=== PATIENT | male | born 1980 | race Caucasian/White ===

== ENCOUNTER 2020-11-14 10:34 | Emergency (ER) | payer BC, SELFPAY ==
--- NOTE | ~2020-11-14 | CT_ITS ---
EXAMINATION: CT abdomen pelvis wo con DATE: 11/14/2020 11:37 INDICATION: Right flank pain TECHNIQUE: Computed tomography (CT) of the abdomen and pelvis was performed without intravenous contr ast. The dose-length product was 415.90 mGy-cm. Automated exposure control and iterative reconstructi on technique were employed. COMPARISON: None. FINDINGS: Lung bases are unremarkable. Heart size normal. No significant pleural or pericardial effus ion. There is a 3 mm distal right ureteral stone just proximal to the UVJ with mild hydronephrosis. Fatty infiltration of the liver. Status post cholecystectomy. The spleen, pancreas, adrenal glands an d left kidney are unremarkable. Nonobstructive bowel gas pattern. Bladder is decompressed. No signifi cant vascular abnormality. No lymphadenopathy. No free air or free fluid. No acute osseous abnormalit y. IMPRESSION: 1. Distal right ureteral stone measuring 3 mm with mild hydronephrosis. Reviewed, dictated and finalized at location A.
[2020-11-14 10:36] VITALS: BP 141/72; PULSE 70; RESP 20; TEMP 36.6; O2SAT 100
[2020-11-14 10:54] LABS: Basophils Percent Auto 0.4 % (0.2-1.2); Eosinophils Absolute Auto 0.2 K/mm3 (0-0.3); Eosinophils Percent Auto 2.8 % (0-4.4); Hematocrit 46.8 % (42.0-52.0); Hemoglobin 15.8 g/dL (14.0-18.0); Immature Granulocyte Absolute 0.02 K/mm3 (0.00-0.031); Immature Granulocyte Percent A 0.2 % (0-0.5); Lymphocytes Absolute Auto 3.21 K/mm3 (0.9-3.2); Lymphocytes Percent Auto 37.7 % (18.3-44.2); Mean Corpuscular HGB Conc 33.8 g/dl (32-36); Mean Corpuscular Hemoglobin 29.8 pg (26-34); Mean Corpuscular Volume 88.1 fl (80-100); Mean Platelet Volume 9.3 fl (7.4-10.4); Monocytes Absolute Auto 0.9 K/mm3 (0.1-0.6); Monocytes Percent Auto 10.6 % (2.6-8.5); Neutrophils Absolute Auto 4.1 K/mm3 (1.3-6.7); Neutrophils Percent Auto 48.3 % (45.5-73.1); Platelet Count Result 251 k/mm3 (150-375); Red Blood Count 5.31 M/mm3 (4.6-6.20); Red Cell Distribution Width 12.4 % (11.5-14.5); White Blood Count 8.5 K/mm3 (4.5-10.0)
[2020-11-14 11:03] LABS: Anion Gap 11 mmol/L (8-16); Blood Urea Nitrogen 13 mg/dL (9-20); Calcium 9.6 mg/dL (8.4-10.2); Carbon Dioxide 24 mmol/L (22-30); Chloride 102 mmol/L (98-107); Estimated CRCL calculation 118 ml/min; Estimated Glomerular Filt Rate > 60; Glucose 120 mg/dL (65-110); Potassium 3.8 mmol/L (3.4-5.0); Sodium 137 mmol/L (137-145)
[2020-11-14 11:15] LABS: Add Urine Microscopic? YES; Appearance Urine Clear (Clear); Bilirubin Urine Negative (Negative); Blood Urine 2+ (Negative); Calcium Oxalate Crystals Urine Present /hpf; Color Urine Yellow (Yellow); Glucose Urine UA Negative (Negative); Ketones Urine Negative (Negative); Leukocyte Esterase Ur Negative LEU/UL (Negative); Mucus Urine Rare /lpf; Nitrate Urine Negative (Negative); Protein Urine 1+ mg/dL (Negative); RBC Urine 51-75 /hpf (0-2); Specific Grav Ur 1.024 (1.001-1.035); Squamous Epithelial Cell Urine Rare /hpf (Few); Urobilinogen Urine Negative mg/dL (<2.0); WBC Urine 0-3 /hpf
[2020-11-14] MEDS: KETOROLAC 30 MG/ML VIAL (*BKC) IV PUSH (11:34)
[2020-11-14] MEDS: ONDANSETRON INJ 4 MG/2 ML VIAL IV PUSH (11:34)
[2020-11-14] MEDS: SODIUM CHLORIDE 0.9% IV 1,000 ML 999 ML IV CONT (11:35)
--- NOTE | 2020-11-14 12:32 | ED.ABDPAIN ---
HPI - Abdominal Pain General Chief Complaint: Abdominal Pain Stated Complaint: R FLANK PAIN Time Seen by Provider: 11/14/20 11:11 History of Present Illness HPI narrative: Patient is a 40-year-old male who presents ER with right-sided flank pain. Began 1 hour prior to arrival. Now having discomfort in the right lower quadrant. Had some nausea. No fevers or chills or sweats. No chest pain or chest pressure. Has not had similar symptoms. No urinary frequency urgency or dysuria. Related Data Allergies Allergy/AdvReac Type Severity Reaction Status Date / Time No Known Allergies Allergy Unverified 05/30/13 10:44 Review of Systems Review of Systems: All systems reviewed & are unremarkable except as noted in HPI and below Constitutional: Constitutional: Denies chills, Denies fever(s) and Denies weakness ENT: Denies nasal congestion and Denies sore throat Gastrointestinal: Gastrointestinal: Reports abdominal pain, Reports nausea and Denies vomiting Genitourinary: Genitourinary: Denies hematuria, Denies dysuria and Denies urinary frequency PMFSH Past Medical History Medical History (Updated 11/14/20 @ 12:38 by Jas Ulloa MD) Healthy male adult Surgical History Surgical History (Updated 11/14/20 @ 12:35 by Jas Ulloa MD) History of cholecystectomy Family History Family History (Updated 12/14/18 @ 10:10 by DOCTOR UNKNOWN) Other Family history of atrial fibrillation Social History Social History Smoking status: Never smoker Alcohol intake: current Gender identity (if verbalized by the patient): Male Exam Narrative: GENERAL: Well-appearing, well-nourished, and in no acute distress. HEAD: Normocephalic, atraumatic. EYES: PERRL and EOMI. ENT: Mucous membranes moist. CHEST: Clear to auscultation. No respiratory distress. HEART: Regular rate and rhythm. Normal peripheral pulses. ABDOMEN: Soft, nontender, nondistended. EXTREMITIES: Normal range of motion. No edema. SKIN: Warm, dry, no rash. NEURO: Alert and oriented x3. Course Course Emergency Course: Patient resting comfortably. Informed results. Discharge home. Vital Signs Vital signs: Vital Signs Temperature 97.8 F 11/14/20 10:36 Pulse Rate 70 11/14/20 10:36 Respiratory Rate 20 11/14/20 10:36 Blood Pressure 141/72 H 11/14/20 10:36 Pulse Oximetry 100 11/14/20 10:36 Temperature 97.8 F 11/14/20 10:36 Pulse Rate 70 11/14/20 10:36 Respiratory Rate 20 11/14/20 10:36 Blood Pressure 141/72 H 11/14/20 10:36 Pulse Oximetry 100 11/14/20 10:36 MDM - Abdominal Pain Lab Data Result diagrams: 11/14/20 10:45 11/14/20 10:45 Labs: Lab Results 11/14/20 11/14/20 11/14/20 Range/Units 10:45 10:45 10:54 WBC 8.5 (4.5-10.0) K/mm3 RBC 5.31 (4.6-6.20) M/mm3 Hgb 15.8 (14.0-18.0) g/dL Hct 46.8 (42.0-52.0) % MCV 88.1 (80-100) fl MCH 29.8 (26-34) pg MCHC 33.8 (32-36) g/dl RDW 12.4 (11.5-14.5) % Plt Count 251 (150-375) k/mm3 MPV 9.3 (7.4-10.4) fl Immature Gran % (Auto) 0.2 (0-0.5) % Neut % (Auto) 48.3 (45.5-73.1) % Lymph % (Auto) 37.7 (18.3-44.2) % [place] % (Auto) 10.6 H (2.6-8.5) % Eos % (Auto) 2.8 (0-4.4) % Baso % (Auto) 0.4 (0.2-1.2) % Lymph # (Auto) 3.21 H (0.9-3.2) K/mm3 [place] # (Auto) 0.9 H (0.1-0.6) K/mm3 Eos # (Auto) 0.2 (0-0.3) K/mm3 Baso # (Auto) 0.0 (0.0-0.1) K/mm3 Abs Immat Gran (auto) 0.02 (0.00-0.031) K/mm3 Absolute Neuts (auto) 4.1 (1.3-6.7) K/mm3 Absolute Nucleated RBC 0.0 (0.0-0.012) K/mm3 Nucleated RBC % 0.0 (0.0-0.2) % Sodium 137 (137-145) mmol/L Potassium 3.8 (3.4-5.0) mmol/L Chloride 102 (98-107) mmol/L Carbon Dioxide 24 (22-30) mmol/L Anion Gap 11 (8-16) mmol/L BUN 13 (9-20) mg/dL Creatinine 0.90 (0.7-1.3) mg/dL Estim Creat Clear Calc 118 ml/min Estimated GFR > 60 (59 - ) Glucose
[2020-11-14 12:51] VITALS: BP 132/78; PULSE 78; RESP 18; O2SAT 99
== END 2020-11-14 12:54 | disposition home or self-care (01) ==
PROVIDERS: Emergency Provider Emergency Medicine; PCP Family Medicine
DX: N13.2 Hydronephrosis with renal and ureteral calculous obstruction (principal)
CPT/HCPCS: 36415; 74176; 80048; 81001; 85025; 96361; 96374; 96375; 99284; J1885; J2405; J7030

== ENCOUNTER 2021-12-13 06:31 | Emergency (ER) | payer BC, OTHER, SELFPAY ==
--- NOTE | ~2021-12-13 | XR_ITS ---
EXAMINATION: XR abdomen/kub 1V DATE: 12/13/2021 07:41 INDICATION: Kidney stone. Left-sided back pain. TECHNIQUE: A supine view of the abdomen on 2 radiographs was obtained. COMPARISON: CT abdomen and pelvis 12/13/2021 FINDINGS: There are no dilated loops of bowel. Surgical clips in the right upper quadrant are likely from cholecystectomy. There is no visible urolithiasis. IMPRESSION: 1. No visible urolithiasis. Reviewed, dictated and finalized at location A. IMPRESSION: 1. No visible urolithiasis.
--- NOTE | ~2021-12-13 | CT_ITS ---
EXAMINATION: CT abdomen pelvis wo con DATE: 12/13/2021 07:35 INDICATION: Left flank pain. Nausea. TECHNIQUE: Computed tomography (CT) of the abdomen and pelvis was performed without intravenous contr ast. Automated exposure control and iterative reconstruction technique were employed. The dose-length product was 553.04 mGy-cm. COMPARISON: CT abdomen and pelvis 11/14/2020 FINDINGS: The visualized portions of the lung bases demonstrate mild atelectasis. No pleural effusion . The heart size is normal. No pericardial effusion. There is diffuse hepatic steatosis. There are ch anges of cholecystectomy. The spleen, pancreas, adrenal glands, and right kidney are normal. There is mild left hydronephrosis. There is a 3 mm stone in proximal left ureter. There are bilateral inguina l hernias containing fat. There is a supraumbilical ventral hernia containing fat. There are no dilat ed loops of bowel. The appendix is normal. There are no pathologically enlarged lymph nodes. There is no free intraperitoneal fluid. There is mild thoracolumbar spondylosis. IMPRESSION: 1. 3 mm stone in proximal left ureter with mild left hydronephrosis. 2. Bilateral inguinal hernias containing fat. 3. Supraumbilical ventral hernia containing fat. Reviewed, dictated and finalized at location A.
[2021-12-13 06:38] VITALS: PULSE 52; RESP 18; TEMP 36.4; O2SAT 100
[2021-12-13] MEDS: MORPHINE SULFATE (*CRX) 4 MG/ML INJ IV PUSH (06:50)
[2021-12-13 06:53] LABS: Basophils Percent Auto 0.3 % (0.2-1.2); Eosinophils Absolute Auto 0.5 K/mm3 (0-0.3); Eosinophils Percent Auto 4.1 % (0-4.4); Hematocrit 45.4 % (42.0-52.0); Hemoglobin 15.6 g/dL (14.0-18.0); Immature Granulocyte Absolute 0.03 K/mm3 (0.00-0.031); Immature Granulocyte Percent A 0.3 % (0-0.5); Lymphocytes Absolute Auto 5.36 K/mm3 (0.9-3.2); Lymphocytes Percent Auto 45.7 % (18.3-44.2); Mean Corpuscular HGB Conc 34.4 g/dl (32-36); Mean Corpuscular Hemoglobin 30.4 pg (26-34); Mean Corpuscular Volume 88.5 fl (80-100); Mean Platelet Volume 9.4 fl (7.4-10.4); Monocytes Absolute Auto 1.3 K/mm3 (0.1-0.6); Monocytes Percent Auto 10.7 % (2.6-8.5); Neutrophils Absolute Auto 4.6 K/mm3 (1.3-6.7); Neutrophils Percent Auto 38.9 % (45.5-73.1); Platelet Count Result 259 k/mm3 (150-375); Red Blood Count 5.13 M/mm3 (4.6-6.20); Red Cell Distribution Width 12.2 % (11.5-14.5); White Blood Count 11.7 K/mm3 (4.5-10.0)
[2021-12-13 07:03] LABS: Alanine Aminotransferase 76 U/L (6-50); Albumin Level 4.3 g/dL (3.5-5.1); Alkaline Phosphatase 71 U/L (38-126); Anion Gap 9 mmol/L (8-16); Aspartate Amino Transferase 47 U/L (17-59); Bilirubin,Total 0.8 mg/dL (0.2-1.3); Blood Urea Nitrogen 13 mg/dL (9-20); Calcium 9.3 mg/dL (8.4-10.2); Carbon Dioxide 25 mmol/L (22-30); Chloride 107 mmol/L (98-107); Estimated CRCL calculation 116 ml/min; Estimated Glomerular Filt Rate > 60; Glucose 114 mg/dL (65-110); Lipase 88 U/L (23-300); Potassium 3.7 mmol/L (3.4-5.0); Sodium 141 mmol/L (137-145)
--- NOTE | 2021-12-13 07:12 | ED.ABDPAIN ---
HPI - Abdominal Pain General Chief Complaint: Abdominal Pain Stated Complaint: left flank Time Seen by Provider: 12/13/21 06:40 Source: RN notes reviewed History of Present Illness HPI narrative: Patient presents emergency department from home for abdominal pain. Patient states symptoms began approximately 6 AM this morning. The pain is located in the left flank and radiates around the left side of the abdomen described as sharp and stabbing. Associated with nausea. Patient states he has a history of previous kidney stones and this feels similar to prior denies any fevers or chills chest pain shortness of breath vomiting diarrhea or any other symptoms patient states he not taking thing for pain at Related Data Allergies Allergy/AdvReac Type Severity Reaction Status Date / Time No Known Allergies Allergy Verified 12/13/21 06:44 Review of Systems Review of Systems: Gen.: Denies fevers or chills ENT: Denies congestion Respiratory: Denies shortness of breath or cough CV: Denies chest pain or palpitations GI: See HPI Musculoskeletal: Denies back pain or muscle pain Neuro: Denies numbness, tingling, weakness or focal weakness Skin: Denies rash Except as documented, all other systems reviewed and negative [facility] Past Medical History Medical History (Updated 12/13/21 @ 09:15 by Kevin Antoine DO) Healthy male adult Kidney stones Surgical History Surgical History (Updated 11/14/20 @ 12:35 by Jas Ulloa MD) History of cholecystectomy Family History Family History (Updated 12/14/18 @ 10:10 by DOCTOR UNKNOWN) Other Family history of atrial fibrillation Social History Social History Smoking status: Never smoker Alcohol intake: current Gender identity (if verbalized by the patient): Male Exam Narrative: APPEARANCE: No acute distress, nontoxic, resting in bed EYES: EOMI HEENT: Normocephalic, atraumatic, OMM RESPIRATORY: No respiratory distress Clear to auscultation bilaterally with no rhonchi wheezing or rales. CARDIOVASCULAR: Regular rate and rhythm without murmurs rubs or gallops. ABDOMINAL: Soft, nondistended mild tenderness left lower quadrant left upper quadrant no tenderness right upper quadrant right lower quadrant no rebound or guarding, mild left flank tenderness MUSCULOSKELETAl: Moves all extremities. No clubbing, cyanosis or edema. NEURO: Awake and alert. Following commands, speech normal, no focal deficits SKIN:: Warm, dry. No rashes lesions or abrasions PSYCHIATRIC: Normal affect/mood, Course Course Emergency Course: Patient states he is feeling much better at this time Discussed with patient results of workup and diagnosis. Discussed need for follow-up with primary care, proper use of medication, and reasons to return to the emergency department. Patient understands and agrees to current treatment plan Vital Signs Vital signs: Vital Signs Temperature 97.6 F 12/13/21 06:38 Pulse Rate 52 L 12/13/21 06:38 Respiratory Rate 18 12/13/21 06:38 Pulse Oximetry 100 12/13/21 06:38 Oxygen Delivery Room Air 12/13/21 06:38 Temperature 97.6 F 12/13/21 06:38 Pulse Rate 65 12/13/21 09:06 Respiratory Rate 18 12/13/21 09:06 Blood Pressure 147/99 H 12/13/21 09:06 Pulse Oximetry 97 12/13/21 09:06 Oxygen Delivery Room Air 12/13/21 06:38 MDM - Abdominal Pain Lab Data Result diagrams: 12/13/21 06:48 12/13/21 06:48 Labs: Lab Results 12/13/21 12/13/21 12/13/21 Range/Units 06:48 06:48 09:00 WBC 11.7 H (4.5-10.0) K/mm3 RBC 5.13 (4.6-6.20) M/mm3 Hgb 15.6 (14.0-18.0) g/dL Hct 45.4 (42.0-52.0) % MCV 88.5 (80-100) fl MCH 30.4 (26-34) pg MCHC 34.4 (32-36) g/dl RDW 12.2 (11.5-14.5) % Plt Count 259 (150-375) k/mm3 MPV 9.4 (7.4-10.4) fl Immature Gran % (Auto) 0.3 (0-0.5) % Neut % (Auto) 38.9 L (45.5-73.1)
--- NOTE | 2021-12-13 07:13 | PC.NURSE ---
Took report from the pipeline controller. Pt is resting, denies pain at this time, family at the bedside.
[2021-12-13] MEDS: KETOROLAC 30 MG/ML VIAL (*BKC) IV PUSH (07:43)
[2021-12-13] MEDS: SODIUM CHLORIDE 0.9% IV 1,000 ML 999 ML IV CONT (07:44)
[2021-12-13] MEDS: ONDANSETRON INJ 4 MG/2 ML VIAL IV PUSH (07:44)
[2021-12-13] MEDS: TAMSULOSIN HCL 0.4 MG CAPSULE PO (08:06)
[2021-12-13 09:06] VITALS: BP 147/99; PULSE 65; RESP 18; O2SAT 97
[2021-12-13 09:06] LABS: Appearance Urine Clear (Clear); Bilirubin Urine Negative (Negative); Blood Urine 3+ (Negative); Color Urine Yellow (Yellow); Glucose Urine UA Negative (Negative); Ketones Urine Negative (Negative); Leukocyte Esterase Ur Negative LEU/UL (Negative); Nitrate Urine Negative (Negative); Protein Urine Negative (Negative); Specific Grav Ur 1.015 (1.001-1.035); Urobilinogen Urine 0.2 mg/dL (<2.0); pH Urine 6.5 (5.0-9.0)
[2021-12-13 09:26] LABS: Add Urine Microscopic? YES
[2021-12-13 09:27] LABS: Calcium Oxalate Crystals Urine Present /hpf; RBC Urine 51-75 /hpf (0-2); Squamous Epithelial Cell Urine Few /hpf (Few); WBC Urine 0-3 /hpf (0-3)
[2021-12-13 09:28] LABS: Mucus Urine Few /lpf
[2021-12-13 09:38] VITALS: BP 163/71; PULSE 68; RESP 18; O2SAT 100
== END 2021-12-13 09:41 | disposition home or self-care (01) ==
PROVIDERS: Emergency Medicine; Emergency Provider Emergency Medicine; PCP Family Medicine
DX: N13.2 Hydronephrosis with renal and ureteral calculous obstruction (principal); Z87.442 Personal history of urinary calculi; K40.20 Bilateral inguinal hernia, without obstruction or gangrene, not specified as recurrent; K43.9 Ventral hernia without obstruction or gangrene
CPT/HCPCS: 36415; 74018; 74176; 80053; 81001; 83690; 85025; 96361; 96374; 96375; 99284; A9270; J1885; J2270; J2405; J7030

== ENCOUNTER 2021-12-13 20:12 | Emergency (ER) | payer BC, OTHER, SELFPAY ==
--- NOTE | ~2021-12-13 | XR_ITS ---
EXAM: XR abdomen/kub 1V DATE: 12/13/2021 21:04 HISTORY: checking position of L 3mmstone found this am,pain worsening . COMPARISON: 12/13/2021 at 7:[address] abdomen and pelvis 12/13/2021. FINDINGS: Clear lung bases. Cholecystectomy clips. Normal bowel gas pattern. No organomegaly. No abn ormal abdominal calcification. Regional bones and soft tissues normal for age. IMPRESSION: No visible urolithiasis. Reviewed, dictated and finalized at location K. IMPRESSION: No visible urolithiasis.
[2021-12-13 20:15] VITALS: BP 126/96; PULSE 59; RESP 20; TEMP 36.2; O2SAT 99
[2021-12-13] MEDS: KETOROLAC 30 MG/ML VIAL (*BKC) IV PUSH (21:10)
[2021-12-13] MEDS: SODIUM CHLORIDE 0.9% IV 1,000 ML 999 ML IV CONT (21:10)
--- NOTE | 2021-12-13 21:44 | ED.MALEGU ---
HPI - Male Genitourinary General Chief complaint: Urogenital-Male Stated complaint: left kidney stone seen this am for same Time Seen by Provider: 12/13/21 20:37 History of Present Illness HPI Narrative: Patient is a 41-year-old male who presents to the ER for left-sided flank pain. Radiating to left lower quadrant. Was seen earlier today and diagnosed with approximately kidney stone. He has had some sweats and nausea. Pain slightly improved with hydrocodone but is uncomfortable enough he felt he needed to come to the ER. He has been eating and drinking normally. He does report that he is increase his fluid intake in hopes of passing the stone. Related Data Allergies Allergy/AdvReac Type Severity Reaction Status Date / Time No Known Allergies Allergy Verified 12/13/21 20:15 Review of Systems Review of Systems: All systems reviewed & are unremarkable except as noted in HPI and below Constitutional: Constitutional: Reports chills, Denies fatigue and Denies fever(s) ENT: Denies nasal congestion and Denies sore throat Cardiovascular: Cardiovascular: Denies chest pain, Denies radiating jaw, neck or arm pain and Denies slow heart rate Respiratory: Respiratory: Denies cough and Denies dyspnea Gastrointestinal: Gastrointestinal: Reports abdominal pain, Reports nausea and Denies vomiting Genitourinary: Genitourinary: Denies hematuria, Reports oliguria, Denies dysuria and Reports urinary frequency PMFSH Past Medical History Medical History (Updated 12/13/21 @ 22:54 by Jas Ulloa MD) Healthy male adult Kidney stones Surgical History Surgical History (Updated 11/14/20 @ 12:35 by Jas Ulloa MD) History of cholecystectomy Family History Family History (Updated 12/14/18 @ 10:10 by DOCTOR UNKNOWN) Other Family history of atrial fibrillation Social History Social History Smoking status: Never smoker Alcohol intake: current Gender identity (if verbalized by the patient): Male Exam Narrative: GENERAL: Uncomfortable-appearing, well-nourished, and in no acute distress. HEAD: Normocephalic, atraumatic. ENT: Mucous membranes moist. CHEST: Clear to auscultation. No respiratory distress. HEART: Regular rate and rhythm. Normal peripheral pulses. ABDOMEN: Soft, nontender, nondistended. EXTREMITIES: Normal range of motion. No edema. SKIN: Warm, dry, no rash. NEURO: Alert and oriented x3. PSYCH: Normal mood and affect. Course Course Emergency Course: Patient resting comfortably. Improved pain with Toradol but would like an additional dose something before going home. Will oblige and give morphine. We will switch from hydrocodone to Percocet. Vital Signs Vital signs: Vital Signs Temperature 97.2 F L 12/13/21 20:15 Pulse Rate 59 L 12/13/21 20:15 Respiratory Rate 20 12/13/21 20:15 Blood Pressure 126/96 H 12/13/21 20:15 Pulse Oximetry 99 12/13/21 20:15 Oxygen Delivery Room Air 12/13/21 20:15 Temperature 97.2 F L 12/13/21 20:15 Pulse Rate 59 L 12/13/21 20:15 Respiratory Rate 12/13/21 20:15 Blood Pressure 126/96 H 12/13/21 20:15 Pulse Oximetry 99 12/13/21 20:15 Oxygen Delivery Room Air 12/13/21 20:15 MDM - Male Genitourinary Imaging Data Radiologist's impression: ITS Impressions Abdomen X-Ray 12/13/21 21:17 IMPRESSION: No visible urolithiasis. Discharge Plan Discharge Clinical Impression: Kidney stone on left side Patient Disposition: Home, Self-Care Condition: Stable Instructions: Kidney Stones (ED) Additional Instructions: Return the ER if you have fever over 100.4 ?F, you cannot keep down food/water/medication, you have additional concerns. Contact urologist office for further treatment evaluation Prescriptions: New oxycodone-acetaminophen [Percocet] 5-325 mg tablet 1 tablet PO Q6H PRN (Reason: pain) Qty: 12 0RF No Action hydroc
[2021-12-13] MEDS: MORPHINE SULFATE (*CRX) 4 MG/ML INJ IV PUSH (23:03)
[2021-12-13 23:17] VITALS: BP 130/88; PULSE 70; RESP 12; O2SAT 99
[2021-12-13 23:34] VITALS: BP 140/90; PULSE 78; RESP 16; TEMP 36.4; O2SAT 98
== END 2021-12-13 23:35 | disposition home or self-care (01) ==
PROVIDERS: Emergency Provider Emergency Medicine; PCP Family Medicine
DX: N20.0 Calculus of kidney (principal); Z87.442 Personal history of urinary calculi
CPT/HCPCS: 74018; 96361; 96374; 96375; 99284; J1885; J2270; J7030

== ENCOUNTER → 2023-02-17 13:58 | Outpatient (CLI) | payer BC, OTHER, SELFPAY ==
--- NOTE | ~2023-02-17 | XR_ITS ---
EXAMINATION: XR abdomen/kub 1V DATE: 02/17/2023 14:24 INDICATION: Right ureteral stone. TECHNIQUE: A supine view of the abdomen on 2 radiographs was obtained. COMPARISON: CT abdomen and pelvis 12/13/2021 FINDINGS: There are no dilated loops of bowel. Surgical clips in the right upper quadrant are likely from cholecystectomy. There is no visible urolithiasis. IMPRESSION: 1. No visible urolithiasis. Reviewed, dictated and finalized at location E. [employer] IMPRESSION: 1. No visible urolithiasis.
== END ==
PROVIDERS: PCP Urology; Visit Provider Urology
DX: N20.1 Calculus of ureter (principal)
CPT/HCPCS: 74018

== ENCOUNTER 2024-01-26 10:09 | Outpatient (CLI) | payer BC, OTHER, SELFPAY ==
--- NOTE | 2024-01-26 | EST_ITS ---
Patient Info Name: Vito Gastelum Age: 43 years : 1980 Gender: Male Ht: 70 in Wt: 275 lbs BSA: 2.54 m2 HR: 57 bpm BP: 117 / 81 mmHg Heart Rhythm: Sinus Rhythm Exam Date: 01/26/2024 11:25 AM Exam Location: Echo Lab Patient Status: Outpatient Admit Date: 01/26/2024 Staff Ordering Physician: Janny, Zora JAMES Attending Provider: Janny, Zora JAMES Exercise Technologist: Miladis Walls CT Exercise Physician: Quan Abrams DO Exam Type: CA stress test treadmill w NM Study Info Indications R07.9 - Chest pain, unspecified A nuclear stress test was performed. Summary 1. 1. Negative Rell exercise stress test for ischemic ST changes by ECG criteria. 2. 2. Reduced functional capacity, achieving 10 METs of workload. 3. 3. Appropriate HR response to exercise. 4. 4. Appropriate HR recovery at 1 minute post exercise. 5. 5. Nuclear scan to follow and will be reported separately. Please correlate with it. 6. 6. Patient informed of the above results. Protocol: Rell Stress ECG Details Stage: REST Duration (min): 1 min : 31 sec Speed (mph): 0.0 Grade (%): 0 HR (bpm): 60 SBP (mmHg): 117 DBP (mmHg): 81 METS: --- Stage: REST Duration (min): 22 min : 53 sec Speed (mph): 0.0 Grade (%): 0 HR (bpm): 90 SBP (mmHg): 117 DBP (mmHg): 81 METS: --- Stage: STAGE 1 Duration (min): 1 min : 0 sec Speed (mph): 1.7 Grade (%): 10 HR (bpm): 104 SBP (mmHg): 117 DBP (mmHg): 81 METS: --- Stage: STAGE 1 Duration (min): 2 min : 0 sec Speed (mph): 1.7 Grade (%): 10 HR (bpm): 110 SBP (mmHg): 117 DBP (mmHg): 81 METS: --- Stage: STAGE 1 Duration (min): 3 min : 0 sec Speed (mph): 1.7 Grade (%): 10 HR (bpm): 113 SBP (mmHg): 151 DBP (mmHg): 104 METS: --- Stage: STAGE 2 Duration (min): 1 min : 0 sec Speed (mph): 2.5 Grade (%): 12 HR (bpm): 129 SBP (mmHg): 151 DBP (mmHg): 104 METS: --- Stage: STAGE 2 Duration (min): 2 min : 0 sec Speed (mph): 2.5 Grade (%): 12 HR (bpm): 133 SBP (mmHg): 172 DBP (mmHg): 104 METS: --- Stage: STAGE 2 Duration (min): 3 min : 0 sec Speed (mph): 2.5 Grade (%): 12 HR (bpm): 138 SBP (mmHg): 172 DBP (mmHg): 104 METS: --- Stage: STAGE 3 Duration (min): 1 min : 0 sec Speed (mph): 3.4 Grade (%): 14 HR (bpm): 150 SBP (mmHg): 172 DBP (mmHg): 107 METS: --- Stage: STAGE 3 Duration (min): 2 min : 0 sec Speed (mph): 3.4 Grade (%): 14 HR (bpm): 154 SBP (mmHg): 172 DBP (mmHg): 107 METS: --- Stage: STAGE 3 Duration (min): 2 min : 8 sec Speed (mph): 3.4 Grade (%): 14 HR (bpm): 154 SBP (mmHg): 172 DBP (mmHg): 107 METS: --- Stage: RECOVERY Duration (min): 0 min : 51 sec Speed (mph): 0.0 Grade (%): 0 HR (bpm): 133 SBP (mmHg): 146 DBP (mmHg): 96 METS: --- Stage: RECOVERY Duration (min): 1 min : 11 sec Speed (mph): 0.0 Grade (
--- NOTE | ~2024-01-26 | NM_ITS ---
NM stress w perf spect multi Procedure: The patient was stressed using Modified Rell protocol. Prior to the end of exercise 28.6 mCi Tc 99m IV administered. Rest imaging performed following administration of 9.3 mCi Tc 99m IV. Images were reformatted into short axis, horizontal and vertical long axis sections for visual and qu antitative analysis. Indication: Chest pain Comparison: None Findings: Computer assisted qualitative and quantitative analysis of the immediate and delayed images revealed normal left ventricular perfusion without evidence of fixed or reversible perfusion abnorma lity to suggest ischemia or infarction. Normal left ventricular cavity size, wall motion and ejectio n fraction. Left ventricular ejection fraction measures 57%. Impression: 1: No scintigraphic evidence of resting or stress induced perfusion abnormality. 2: Decreased left ventricle ejection fraction measuring 57%. Reviewed, dictated and finalized at location B. Impression: 1: No scintigraphic evidence of resting or stress induced perfusion abnormality . 2: Decreased left ventricle ejection fraction measuring 57%.
== END 2024-01-26 10:10 | disposition home or self-care (01) ==
PROVIDERS: PCP Physician Assistant; Visit Provider Physician Assistant
DX: R07.9 Chest pain, unspecified (principal)
CPT/HCPCS: 78452; 93017; A9502

== ENCOUNTER 2024-02-21 13:20 | Outpatient (CLI) | payer BC, OTHER, SELFPAY ==
--- NOTE | 2024-02-21 | ECHO_ITS ---
Patient Info Name: Vito Gastelum Age: 43 years : 1980 Gender: Male Ht: 70 in Wt: 270 lbs BSA: 2.51 m2 HR: 74 bpm BP: 152 / 101 mmHg Heart Rhythm: Sinus Rhythm Technical Quality: Fair Exam Date: 02/21/2024 2:11 PM Exam Location: Echo Lab Patient Status: Outpatient Admit Date: 02/21/2024 Staff Ordering Physician: JannyZora PA-C Sheriff Officer: Fransisca Claros RDCS Attending Provider: MelissaZora PA-C Exam Type: CA echo doppler color flow Study Info Indications - abn findings on diagnostic imaging of the heart and coronary circulation Complete two-dimensional, color flow and Doppler transthoracic echocardiogram is performed. Summary 1. Complete two-dimensional, color flow and Doppler transthoracic echocardiogram is performed. 2. Left ventricular chamber dimension is normal. 3. Left ventricular systolic function is normal, estimated at 60-65%. 4. The left ventricular diastolic function is grade I diastolic dysfunction. 5. E/e' 8 is minimally elevated. 6. Left atrial chamber dimension is mildly enlarged. 7. There is trace mitral valve regurgitation. 8. There is trace tricuspid valve regurgitation. 9. No pulmonary hypertension, estimated pulmonary arterial systolic pressure is 28 mmHg. Left Ventricle E/e' 8 is minimally elevated. Left ventricular chamber dimension is normal. Left ventricular systolic function is normal, estimated at 60-65%. The left ventricular diastolic function is grade I diastolic dysfunction. Right Ventricle Right ventricular systolic function is normal and with normal TAPSE 2.2 cm. Right ventricular chamber dimension is normal. Left Atria Left atrial chamber dimension is mildly enlarged. Right Atria Right atrial chamber dimension is normal. Aortic Valve The aortic valve is trileaflet. There is no aortic valve stenosis. There is no aortic valve regurgitation. Pulmonic Valve There is no pulmonic regurgitation. Mitral Valve There is no mitral valve stenosis. There is trace mitral valve regurgitation. Tricuspid Valve There is trace tricuspid valve regurgitation. No pulmonary hypertension, estimated pulmonary arterial systolic pressure is 28 mmHg. Pericardium/Pleural There is no pericardial effusion. Inferior Vena Cava Normal inferior vena cava with >50% collapse upon inspiration consistent with normal right atrial pressure, 5 mmHg. Aorta The aortic root size at the sinus of Valsalva is normal. Left Ventricular Outflow Tract Name Value Normal LVOT 2D LVOT Diameter 2.2 cm LVOT Doppler LVOT Peak Gradient 3 mmHg LVOT Mean Gradient 1 mmHg LVOT VTI 17 cm LVOT VTI/AV VTI Ratio 0.7 LVOT Stroke Volume 62 ml LVOT CO 4.3 l/min LVOT CI 1.7 l/min/m2 Pulmonic Valve Name Value Normal RVOT Doppler RVOT Peak Gradient 2 mmHg PV Doppler PV Peak Gradient 4 mmHg Mitral Valve Name Value Normal MV Doppler MV Decel [place] 334 cm/s2 MV PHT 61 ms MV Area (PHT) 3.6 cm2 4.0-5.0 MV Diastolic Function MV E Peak Velocity 71 cm/s MV A Peak Velocity 94 cm/s MV E/A 0.8 MV Decel Time 212 ms MV Annular TDI MV E/e' (Septal) 9.3 <=8.0 MV E/e' (Lateral) 7.7 <=8.0 MV E/e' (Average) 8.5 Tricuspid Valve Name Value Normal TV Regurgitation Doppler TR Peak Velocity 241 cm/s TR Peak Gradient 16 mmHg Estimated PAP/RSVP RA Pressure 5 mmHg <=5 PA Systolic Pressure 28 mmHg <36 RV Systolic Pressure 28 mmHg <36 Aortic Valve Name Value Normal AV Doppler AV Peak Velocity 135 cm/s AV Peak Gradient 7 mmHg AV Mean Gradient 4 mmHg AV VTI 25 cm AV Area (Cont Eq VTI) 2.5 cm2 >=3.0 AV Area (Cont Eq Kris) 2.4 cm2 AV Regurgitation 2D LVOT Area 3.7 cm2 Ventricles Name Value Normal LV Dimensions 2D/MM IVS Diastolic Thickness (2D) 1.0 cm 0.6-1.0 LVID Diastole (2D) 4.6 cm 4.2-5.8 LVIW Diastolic Thickness (2D) 1.0 cm 0.6-1.0 LVID Systole (2D) 3.0 cm 2.5-4.0 LVOT Diameter 2.2 cm LV Mass (2D Cubed) 159.15 g 88.00-224.00 LV Mass Index (2D Cubed) 63 g/m2 49-115 Relative Wall Thickness (2D) 0.42 LV Fractional Shortening/Ejection Fraction 2D/MM LV Fractional Shortening (2D) 35 % 25-43 LV EF (2D Teicholz) 64 % 52-72 LV Diastolic Volume (4C MOD) 117 ml LV EF (4C MOD) 70 % LV Diastolic Volume (2C MOD) 92 ml LV EF (2C MOD) 73 % LV Diastolic Volume (BP MOD) 104 ml 62-150 LV Diastolic Volume Index (BP MOD) 41 ml/m2 34-74 LV Systolic Volume (BP MOD) 31 ml 21-61 LV Systolic Volume Index (BP MOD) 12 ml/m2 11-31 LV EF (BP MOD) 70 % 52-72 LV Diastolic Length (4C) 9.4 cm LV Systolic Length (4C) 7.2 cm LV Stroke Volume (4C MOD) 82 ml Atria Name Value Normal LA Dimensions LA Volume (4C A-L) 61 ml LA Volume (BP A-L) 61 ml RA Dimensions RA Area (4C) 13.5 cm2 <=18.0 Report Signatures
== END 2024-02-21 13:21 | disposition home or self-care (01) ==
PROVIDERS: PCP Physician Assistant; Visit Provider Physician Assistant
DX: R93.1 Abnormal findings on diagnostic imaging of heart and coronary circulation (principal)
CPT/HCPCS: 93306

== ENCOUNTER 2024-03-03 12:54 | Emergency (ER) | payer BC, OTHER, SELFPAY ==
--- NOTE | ~2024-03-03 | XR_ITS ---
EXAMINATION: XR chest 2V DATE: 03/03/2024 13:49 INDICATION: Cough and fever TECHNIQUE: frontal and lateral views of the chest were obtained. COMPARISON: Chest radiograph dated 12/14/2018 FINDINGS: Focal airspace opacities in the infrahilar left lower lung zone. No pulmonary edema, pleural effusion or pneumothorax. The cardiomediastinal silhouette is normal. IMPRESSION: 1. Focal airspace opacity in the infrahilar left lower lung which could represent atelectasis or pneu monia. Reviewed, dictated and finalized at location A. CONDU[employer] MARKER IMPRESSION: 1. Focal airspace opacity in the infrahilar left lower lung which could represe nt atelectasis or pneumonia.
[2024-03-03 13:06] VITALS: BP 142/85; PULSE 77; RESP 16; TEMP 37.1; O2SAT 100
--- NOTE | 2024-03-03 13:35 | ED_ITS ---
HPI - URI/Sore Throat General Chief Complaint: Upper Respiratory Infection Stated Complaint: Cough/Fever/Ear Pain Time Seen by Provider: 03/03/24 13:36 Source: patient Mode of arrival: ambulatory Limitations: no limitations History of Present Illness HPI Narrative: 43 y/o male presented for c/o cough for over one week and started with left ear pain last night. Also reports fever up to 102 last night and endorses wheezing. Pt was seen at the onset of symptoms at an outside UC, given benzonatate, tested negative for covid, flu and strep and had negative cxr at that time. Denies sob, n/v/d. Related Data Home Medications Medication Instructions Recorded Confirmed dextroamphetamine-amphetamine 20 20 mg PO QPM 12/26/22 03/03/24 mg tablet (Adderall) dextroamphetamine-amphetamine ER 10 mg PO DAILY 12/26/22 03/03/24 10 mg 24hr capsule,extend release (Adderall XR) atomoxetine 40 mg capsule 40 mg PO DAILY 03/03/24 03/03/24 benzonatate 100 mg capsule 100 mg PO DIRECTED 03/03/24 03/03/24 ondansetron 4 mg disintegrating 4 mg PO DIRECTED 03/03/24 03/03/24 tablet Allergies Allergy/AdvReac Type Severity Reaction Status Date / Time No Known Allergies Allergy Verified 03/03/24 13:25 Review of Systems Review of Systems: ROS per HPI All systems reviewed & are unremarkable except as noted in HPI and below PMFSH Past Medical History Medical History BMI 39.0-39.9,adult Healthy male adult Kidney stones Obstructive sleep apnea Surgical History Surgical History History of cholecystectomy Family History Family History Father Heart disease CHF (congestive heart failure) Acute myocardial infarction Large fiber neuropathy A-fib Mother Hypertension Sibling No problems noted. 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 Please see nursing chart for further information. There is no relevant family history pertinent to the presenting complaint Exam Narrative: GENERAL: Well-appearing, in no acute distress. EYES: EOMI. No redness or drainage. Conjunctivae normal. ENT: Mucous membranes pink and moist. Right TM normal; left normal ear. Throat normal. Uvula midline. CHEST: No respiratory distress. Wheezing to left lung astorga. Frequent nonproductive cough. HEART: Regular rate and rhythm. No murmur appreciated. ABDOMEN: Soft, nontender, nondistended, normal active bowel sounds. EXTREMITIES: Normal range of motion. No edema. SKIN: Warm, dry, no rash. Capillary refill normal. Normal skin turgor. NEURO: Alert and oriented x3. Gait steady. PSYCH: Normal affect. Course Course Emergency Course: Patient is aware of diagnosis, understands and agrees to treatment plan. Anticipatory guidance given. Patient agrees to follow-up as directed and is aware of reasons to seek care at the emergency department. Portions of this record may have been created with voice recognition software Level of Care: Express Care Visit Vital Signs Vital signs: Vital Signs Temperature 98.8 F 03/03/24 13:06 Pulse Rate 77 03/03/24 13:06 Respiratory Rate 16 03/03/24 13:06 Blood Pressure 142/85 H 03/03/24 13:06 Pulse Oximetry 100 03/03/24 13:06 Temperature 98.8 F 03/03/24 13:06 Pulse Rate 77 03/03/24 13:06 Respiratory Rate 16 03/03/24 13:06 Blood Pressure 142/85 H 03/03/24 13:06 Pulse Oximetry 100 03/03/24 13:06 MDM - URI/Sore Throat MDM Narrative Medical decision making narrative: Discussed physical exam findings and CXR. Advised supportive measures and signs/symptoms to go to the ER. Pt is appropriate for outpt treatment and f/u. Differential Diagnosis Differential diagnosis: Likely upper respiratory infection, sinusitis, viral infection, bronchitis, influenza and pharyngitis Imaging Data Radiologist's impression: Patient: Vito Gastelum : 1980 MR#: [id number] Age: 43 Acct:[id number] Loc: [id number] ADM Date: 03/03/24Attending Dr: Ordering Physician: Kristin Morel APRN Date of Service: 03/03/24 Procedure(s): XR chest 2V Accession Number(s): [id number] cc: Kristin Morel APRN; Janny, Zora JAMES~ EXAMINATION: XR chest 2V DATE: 03/03/2024 13:49 INDICATION: Cough and fever TECHNIQUE: frontal and lateral views of the chest were obtained. COMPARISON: Chest radiograph dated 12/14/2018 FINDINGS: Focal airspace opacities in the infrahilar left lower lung zone. No pulmonary edema, pleural effusion or pneumothorax. The cardiomediastinal silhouette is normal. IMPRESSION: 1. Focal airspace opacity in the infrahilar left lower lung which could represent atelectasis or pneumonia Discharge Plan Discharge Clinical Impression: Pneumonia Patient Disposition: Home, Self-Care Condition: Stable Instructions: Antibiotic Form, Pneumonia (ED) Additional Instructions: Pneumonia is a lung infection that can cause a fever, cough, and trouble breathing. How it spreads: When someone with bacterial pneumonia coughs, sneezes, or talks, they release respiratory droplets into the air that can be inhaled by others.?You can also get pneumonia by touching a contaminated surface or object and then touching your mouth or nose. You're generally contagious for around 48 hours after starting antibiotics and your fever goes away.? To prevent the spread of pneumonia, you can:? ? Get vaccinated? ? Wash your hands often with soap and water for 20 seconds? ? Cover your mouth with a tissue when you cough or sneeze? ? Avoid people who are already sick with pneumonia? ? Stay home when you have pneumonia Take antibiotics as directed until complete. eat small frequent meals. Get lots of rest and drink fluids. Alternate Tylenol and ibuprofen for pain/fever Sxhj-deq-zoujpyi cough medication can cause drowsiness, take according to yumiko austin directions If you have nasal congestion, you can take Zyrtec, Claritin along with Flonase spray Call your Primary Care Doctor and make a follow-up appointment in 3 days. Go to the ER for worsening symptoms or concerns Prescriptions: New methylprednisolone [Medrol (Josiah)] 4 mg tablets,dose pack See Rx Instructions .ROUTE .COMPLEX Qty: 21 0RF Rx Instructions: orally per package directions albuterol sulfate 90 mcg/actuation HFA aerosol inhaler 2 inh inhalation QID PRN (Reason: shortness of breath or wheezing) Qty: 8.5 0RF amoxicillin-pot clavulanate 875-125 mg tablet 1 tablet PO Q12H 7 Days Qty: 14 0RF No Action benzonatate 100 mg capsule 100 mg PO DIRECTED ondansetron 4 mg tablet,disintegrating 4 mg PO DIRECTED atomoxetine 40 mg capsule 40 mg PO DAILY dextroamphetamine-amphetamine [Adderall XR] 10 mg capsule,extended release 24hr 10 mg PO DAILY dextroamphetamine-amphetamine [Adderall] 20 mg tablet 20 mg PO QPM Follow-up/Referrals: Janny,ERIKA Blakely [Primary Care Provider] - Stand Alone Forms: Work/School Release IP
== END 2024-03-03 14:24 | disposition home or self-care (01) ==
PROVIDERS: Emergency Provider Nurse Practitioner Family; PCP Physician Assistant
DX: J18.9 Pneumonia, unspecified organism (principal)
CPT/HCPCS: 71046; 99213; G0463

== ENCOUNTER 2024-07-05 00:53 | Day surgery (SDC) | payer BC, OTHER, SELFPAY ==
[2024-06-25 10:23] VITALS: BMI 38.8
--- OUTSIDE RECORDS SUMMARY | 2024-07-05 00:56 | XMS_ITS | Clinical Summary ---
Author Organization [facility] Address [address] [place] [address] Care Team Providers Care Esthetician And Manager Medical Spa Name Role Phone Johnathan Ford MD Unavailable [phone] Zora Soliman Primary Care Pr ovider Bennie Sofia NP Unavailable [phone] Allergies No known active allergies Medications dextroamphetami ne-amphetamine (ADDERALL) 20 mg tablet 1 tablet (20 mg total) Patient takes 40mg in the am and 20mg in the afternoon Active ascorbic acid (VITAMIN C) 500 mg tablet,chewable Take 1 tablet/chew tab (500 mg total) by mouth 2 (two) times a day 60 tablet/chew tab 4 Active aspirin 81 mg enteric coated tabletIndicatio ns:prevention of thrombosis Take 1 tablet (81 mg total) by mouth 2 (two) times a day for 14 days 28 tablet 4 Active cholecalciferol (VITAMIN D-3) 2000 unit capsule Take 1 capsule (2,000 Units total) by mouth daily 30 capsule 4 Active HYDROcodone-claudia taminophen (NORCO) 5-325 mg per tabletIndicatio ns:Pain Take 1 tablet by mouth every 6 (six) hours as needed for pain 15 tablet 4 Active ondansetron (ZOFRAN) 4 mg tabletIndicatio ns:Prevention of Post-Operative Nausea and Vomiting Take 1 tablet (4 mg total) by mouth every 6 (six) hours as needed for nausea or vomiting 20 tablet 1 4 Active senna-docusate (PERICOLACE) 8.6-50 mg Take 1 tablet by mouth 2 (two) times a day as needed for constipation 20 tablet 1 4 Active benzonatate (TESSALON) 100 mg capsuleIndicati ons:Cough Take 1 capsule (100 mg total) by mouth 3 (three) times a day as needed for cough 42 capsule 4 Active Active Problems Problem Noted Date Diagnosed Date Tear of medial meniscus of right knee 09/20/2023 Pain of upper abdomen 06/12/2023 Severe sepsis 12/16/2021 Ureteral stone with hydronephrosis 12/16/2021 Fatty liver 12/16/2021 Splenomegaly 12/16/2021 ADHD (attention deficit hype ractivity disorder), inattentive type 12/16/2021 COLTON (obstructive sleep apnea) 12/16/2021 Class 2 severe obesity due t o excess calories with serious comorbidity and body mass index (BMI) of 35.0 to 35.9 in adult 12/16/2021 Acute pyelonephritis 12/16/2021 Kidney donor 07/15/2020 History of cardiac radiofrequency ablation 01/08 Overview (12/16/2021): For SVT Assessment & Plan (01/08/2019 5:09 PM CDT): Frequent episodes lasting up to 10 minutes, usually converting with squatting. Resting bradycardia precludes beta-aide therapy. Will refer to EP for consideration of radiofrequency ablation. Will obtain echo Doppler. Will obtain actual strips from his Holter monitor done at [facility]. Chest pain 01/08/2019 Assessment & Plan (01/08/2019 5:10 PM CDT): Chest pain is not suggestive myocardial ischemia. Aside from possibly positive family history, he is not known to have risk factors for coronary artery disease. Resting EKG is normal. We considered obtaining a stress test, largely for his reassurance, but he is concerned that it may put him in to his tachycardia, so will hold off for now. Elevated liver enzymes 09/08/2009 Anxiety state 08/20/2009 Snoring 08/20/2009 Fever, unspecified Surgical History Surgery Date Site/Laterality Comments VASECTOMY CARDIAC ELECTROPHYSIOLOGY STUDY AND ABLATION 9 LAPAROSCOPIC CHOLECYSTECTOMY Medical History Medical History Date Comments Paroxysmal SVT (supraventricular tachycardia) Obstructive sleep apnea CPAP Fatty liver Kidney stones ADHD (attention deficit hyperactivity disorder) Family History Medical History Relation Name Comments Arrhythmia Father afib, pacemaker Atrial fibrillation Father Bradycardia Father Heart attack Father Pacemaker Father Heart attack Maternal Grandfather Relation Name Status Comments Father (Age 69) Maternal Grandfather Mother Alive Social History Tobacco Use Types Packs/Day Years Used Date Smoking Tobacco: Never Passive Smoke Exposure: Never Smokeless Tobacco: Never Tobacco Cessation:Counseling Given: No Alcohol Use Standard Drinks/Week Comments Yes 0 (1 standard drink = 0.6 oz pur e alcohol) occasionally Humiliation, Afraid, Rape, and Kick questionnair e Answer Date Recorded Within the last year, have y ou been afraid of your partner or ex-partner? No 06/26/2020 Within the last year, have y ou been humiliated or emotionally abused in other ways by your partner or ex-partner? No Within the last year, have y ou been kicked, hit, slapped, or otherwise physically hurt by your partner or ex-partner? No 06/26/2020 Within the last year, have y ou been raped or forced to have any kind of sexual activity by your partner or ex-partner? No 06/26/2020 Social Connection and Isolat ion Panel [NHANES] Answer Date Recorded In a typical week, how many times do you talk on the phone with family, friends, or neighbors? More than three times a week 12/16/2021 How often do you get togethe r with friends or relatives? Never 12/16/2021 How often do you attend chur ch or yazidi services? Never 12/16/2021 Do you belong to any clubs o r organizations such as scientology groups, unions, fraternal or athletic groups, or school groups? No 12/16/2021 How often do you attend meet ings of the clubs or organizations you belong to? Never 12/16/2021 Are you , , di vorced, , never , or living with a partner? 12/16/2021 AUDIT-C Answer Date Recorded Frequency of Alcohol Consumption Not on file 10/03/2023 Q2: How many drinks containi ng alcohol do you have on a typical day when you are drinking? Patient does not drink Frequency of Binge Drinking Not on file 09/09 Overall Financial Resource Strain (CARDIA) Answe r Date Recorded How hard is it for you to pa y for the very basics like food, housing, medical care, and heating? Not hard at all 12/16/2021 [facility] - Occupational Stress Questionnaire Answer Date Recorded Do you feel stress - tense, restless, nervous, or anxious, or unable to sleep at night because your mind is troubled all the time - these days? Only a little 06/26/2020 Exercise Vital Sign Answer Date Recorde d On average, how many days pe r week do you engage in moderate to strenuous exercise (like a brisk walk)? Patient declined On average, how many minutes do you engage in exercise at this level? Patient declined 06/26/2020 Hunger Vital Sign Answer Date Recorded Within the past 12 months, y ou worried that your food would run out before you got the money to buy more. Never true 06/27/19 21 Within the past 12 months, t he food you bought just didn't last and you didn't have money to get more. Never true 06/26/2020 PRAPARE - Transportation Answer Date Re corded In the past 12 months, has l ack of transportation kept you from medical appointments or from getting medications? No 11/2021 In the past 12 months, has l ack of transportation kept you from meetings, work, or from getting things needed for daily living? No 12/16/2021 Housing Stability Vital Sign Answer [place] e Recorded In the last 12 months, was t here a time when you were not able to pay the mortgage or rent on time? No 06/26/2020 Number of Places Lived in the Last Year Not on f ile 06/26/2020 In the last 12 months, was t here a time when you did not have a steady place to sleep or slept in a mcc (including now)? No 06/26/2020 Personal Safety Answer Date Recorded Have you ever been in or are you currently in a harmful physical or emotional relationship or is someone making you feel afraid or unsafe? Denies 10/03/2023 Education Answer Date Recorded What is the highest level of school you have completed or the highest degree you have received? 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3 cm (5' 11 ) 02/27/2024 12:24 PM [employer] DI[employer] SERVICE SUPERVISOR Body Mass Index 37.8 02/27/2024 12:24 PM [employer] DI[employer] SERVICE SUPERVISOR Plan of Treatment Health Maintenance Due Date Last Done Comments Colon Cancer Screening-Colonoscopy 1980 Depression Screening 1980 DTaP/Tdap/Td Vaccine (1 - Tdap) 1989 Hepatitis B Screening 1996 Regular Well Visit/Exam 18-64 1996 Pneumococcal vaccine <65 (1 of 2 - PCV) 1997 Influenza Vaccine (#1) 2023 6, 01/15/2016, 01/09/2015, Additional history exists Hepatitis C Screening Completed 06/05/2020 HPV Vaccines Aged Out No longer eligi ble based on patient's age to complete this topic Medical Devices Implanted Type Area Director Clinical Pharmacology Device Identifier Shelf Expiration Date Model / Serial / Lot e-[employer] [id number] System 6-12fr Mvp Venous Closure Vascade - [id number] - [id number] Implanted:Qty: 1 on 03/21/2019 by Vladimir Cantu MD at [facility] [employer] [id number] 01/30/2021 800-612C- 10U / 800-612C / [id number] 22C [employer] [id number] System 6-12fr Mvp Venous Closure Vascade - [id number] - [id number] Implanted:Qty: 1 on 03/21/2019 by Vladimir Cantu MD at [facility] [employer] [id number] 01/30/2021 800-612C- 10U / 800-612C / [id number] 22C [employer] [id number] System 6-12fr Mvp Venous Closure Vascade - [id number] - [id number] Implanted:Qty: 1 on 03/21/2019 by Vladimir Cantu MD at [facility] [employer] [id number] 01/30/2021 800-612C- 10U / 800-612C / [id number] 22C [employer] [id number] System 6-12fr Mvp Venous Closure Vascade - [id number] - [id number] Implanted:Qty: 1 on 03/21/2019 by Vladimir Cantu MD at [facility] [employer] [id number] 01/30/2021 800-612C- 10U / 800-612C / [id number] 22C [employer] [id number] System 6-12fr Mvp Venous Closure Vascade - [id number] - [id number] Implanted:Qty: 1 on 03/21/2019 by Vladimir Cantu MD at [facility] [employer] [id number] 01/30/2021 800-612C- 10U / 800-612C / [id number] 22C [employer] Jenni Contour 6fr 28cm Taper Tip Bladder Henry Low Profile Large Inner Latex Free 180-224 - [id number] Implanted:Qty: 1 on 12/16/2021 by Romy Quinn MD at [facility] Left: Ureter [employer] Jenni 08/19/2024 180-224 / / [id number] Procedures Procedure Name Priority Date/Time Associated Diagnosis Comments HEPATITIS C ANTIBODY Routine 06/05/2020 12:01 PM [employer] SERVICE SUPERVISOR Encounter for donation of kidney from Last 3 Months or Most Recently Relevant to Health Maintenance Results * Hepatitis C antibody (06/05/2020 12:01 PM KOSHER DIETARY SERVICE SUPERVISOR) Hep C Ab Nonreactive Nonreactive [facility] Comment:Antibodies to HCV no t detected. Does NOT exclude the possibility of recent exposure to HCV. Blood specimen (specimen) 06/05/2020 12:01 PM KOSHER DIETARY SERVICE SUPERVISOR 06/05/2020 12:22 PM KOSHER DIETARY SERVICE SUPERVISOR Justin Jimenez MD LAB MICROBIOLOGY - GENERAL ELHAM LINARES Final Result [facility] Department [place] [address] from Last 3 Months or Most Recently Relevant to Health Maintenance [facility] ACCESS CHOICE ANTHEM ACCESS CHOICE ANTHEM ACCESS CHOICE Advance Directives For more information, please contact: [phone] * Full Code (Latest Code Status on File) Date Activated Date Inactivated Comments 12/16/2021 4:02 AM 12/17/2021 8:35 PM Care Teams Esthetician And Manager Medical Spa Relationship Specialty [place] [address] [place] [address] PCP - General Physician Parts Order And Stock Clerk 04/17/23 [place] [address] [place] [address] Consulting Physician Urology 12/17/21 Bennie Sofia NP [address] [place] [address] [address] [place] [address] Nurse Practitioner Orthopedic Surgery 10/03/23
--- OUTSIDE RECORDS SUMMARY | 2024-07-05 00:56 | XMS_ITS | Patient Health Record ---
Author Organization [facility] As [email or web address] Address [address] [facility] [address] [place] [address] Care Team Providers Care Relief Charge Nurse Name Role Phone Zora Milian Primary Care Provider Ciara Ledesma Unavailable [phone] Allergies No Known Allergies Results Component Value Reference Range Notes UDT Reviewed date:02/02/2024 04:15:59 PM Interpretation: Performing Lab: Notes/Report: THC P 0 - 50 ng/ml Cocaine N 0 - 300 ng/ml Amphetamine N 0 - 1000 ng/ml Buprenorphine (BUP) n 0 - 10 ng/ml Secobarbital (Bar) n 0 - 300 ng/ml Oxazepam (BZO) n 0 - 300 ng/ml 4-zswklwoqje-7,1-wtkvnzjh-8,3-diphenylpyrrolidine (ELIEL P) n 0 - 300 ng/ml Methamphetamine (MET) n 0 - 1000 ng/ml Methylenedioxymethamphetamine (MDMA) n 0 - 500 ng/ml Morphine (MOP 300/PBE6123) n 0 - 300 ng/ml Methadone (MTD) n 0 - 300 ng/ml Phencyclidine (PCP) n 0 - 25 ng/ml Nortriptyline (TCA) n 0 - 1000 ng/ml Oxycodone n 0 - 300 ng/ml x n 0 - 300 ng/ml UDT Reviewed date:01/02/2024 04:44:30 PM Interpretation: Performing Lab: Notes/Report: THC p 0 - 50 ng/ml Cocaine n 0 - 300 ng/ml Amphetamine p 0 - 1000 ng/ml Buprenorphine (BUP) n 0 - 10 ng/ml Secobarbital (Bar) n 0 - 300 ng/ml Oxazepam (BZO) n 0 - 300 ng/ml 0-cjlkssdfyw-2,0-kegshjrv-7,3-diphenylpyrrolidine (ELIEL P) n 0 - 300 ng/ml Methamphetamine (MET) n 0 - 1000 ng/ml Methylenedioxymethamphetamine (MDMA) n 0 - 500 ng/ml Morphine (MOP 300/ITF7997) n 0 - 300 ng/ml Methadone (MTD) n 0 - 300 ng/ml Phencyclidine (PCP) n 0 - 25 ng/ml Nortriptyline (TCA) n 0 - 1000 ng/ml Oxycodone n 0 - 300 ng/ml x n 0 - 300 ng/ml Reason For Referral No Information Medications Medication SIG (Take, Route, Frequency, Duration) Notes Start Date End Date Status Fish Oil 500 MG 1 capsule Orally onc e daily Active dilTIAZem HCl ER Coated Beads 120 MG TAKE 1 CAPSULE BY MOUTH EVERY DAY Oral for 90 Days Active Atomoxetine HCl 40 MG 1 capsule in the m orning Orally Once a day for 90 days Active Social History Tobacco Use: Social History Observation Description Date Details (start date - stop date) Never Smoker NA - NA Sex Assigned At : Social History Observation Description Sex Assigned At Male Tobacco Control (Standard) Question Answer Notes Tobacco use: Nonsmoker AUDIT-C (Standard) Question Answer Notes Did you have a drink contain ing alcohol in the past year? Yes How often did you have six o r more drinks on one occasion in the past year? Never (0 point) How many drinks did you have on a typical day when you were drinking in the past year? 1 or 2 drinks (0 point) How often did you have a dri nk containing alcohol in the past year? 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), inattentive type (F90.0) Active confirmed Vital Signs Heart Rate 71 /min 04/26/2024 Height-cm 179.07 cm 04/26/2024 Blood pressure diastolic 93 mm Hg 04/26/2024 Weight-kg 125.19 kg 01/02/2024 Height 70.5 in 04/26/2024 Blood pressure systolic 148 mm Hg 04/26/2024 Weight 276 lbs 01/02/2024 BMI 39.04 kg/m2 01/02/2024 Encounters Encounter Location Date Provider Diagnosis [place] [address] [place] [address] 01/02/2024 Ciara Ambrose ADHD (attention defi cit hyperactivity disorder), inattentive type F90.0 ; CE (generalized anxiety disorder) F41.1 and MDD (major depressive disorder), recurrent episode, mild F33.[address] [place] [address] 02/02/2024 Ciara Ambrose ADHD (attention defi cit hyperactivity disorder), inattentive type F90.0 ; CE (generalized anxiety disorder) F41.1 and MDD (major depressive disorder), recurrent episode, mild F33.[address] [facility] [address] [place] [address] 03/15/2024 Ciara Ambrose ADHD (attention defi cit hyperactivity disorder), inattentive type F90.0 ; CE (generalized anxiety disorder) F41.1 and MDD (major depressive disorder), recurrent episode, mild F33.0 [place] [address] [facility] [address] [place] [address] 04/26/2024 Ciara Ambrose ADHD (attention defi cit hyperactivity disorder), inattentive type F90.0 ; CE (generalized anxiety disorder) F41.1 and MDD (major depressive disorder), recurrent episode, mild F33.[address] [facility] [address] [place] [address] 01/02/2024 Ciara Ambrose [place] [address] [facility] [address] [place] [address] 02/02/2024 Ciara Ambrose [place] [address] [facility] [address] [place] [address] 06/20/2024 Ciara Ambrose [place] [address] [facility] [address] [facility] [address] [place] [address] 06/20/2024 Ciara Ambrose Assessments Encounter Date Diagnosis (ICD Code) Assessment Notes Treatment Notes Treatment Clinical Notes Section Notes 01/02/2024 ADHD (attention deficit hyperactivity disorder), inattentive type (ICD-10 - F90.0) Discussed risks/benefits/al ternatives to atomoxetine, including GI side effects, weight loss, irritability, constipation, sexual dysfunction, increase in blood pressure and liver damage. Patient denies any h/o cardiovascular disease, including hypertension, tachyarrhythmias. 01/02/2024 CE (generalized anxiety disorder) (ICD-10 - F41.1) 02/02/2024 ADHD (attention deficit hyperactivity disorder), inattentive type (ICD-10 - F90.0) Discussed risks/benefits/al ternatives to atomoxetine, including GI side effects, weight loss, irritability, constipation, sexual dysfunction, increase in blood pressure and liver damage. Patient denies any h/o cardiovascular disease, including hypertension, tachyarrhythmias. 03/15/2024 ADHD (attention deficit hyperactivity disorder), inattentive type (ICD-10 - F90.0) Discussed risks/benefits/al ternatives to atomoxetine, including GI side effects, weight loss, irritability, constipation, sexual dysfunction, increase in blood pressure and liver damage. Patient denies any h/o cardiovascular disease, including hypertension, tachyarrhythmias. 04/26/2024 ADHD (attention deficit hyperactivity disorder), inattentive type (ICD-10 - F90.0) Discussed risks/benefits/al ternatives to atomoxetine, including GI side effects, weight loss, irritability, constipation, sexual dysfunction, increase in blood pressure and liver damage. Patient denies any h/o cardiovascular disease, including hypertension, tachyarrhythmias. 04/26/2024 CE (generalized anxiety disorder) (ICD-10 - F41.1) 03/15/2024 CE (generalized anxiety disorder) (ICD-10 - F41.1) 01/02/2024 MDD (major depressive disorder), recurrent episode, mild (ICD-10 - F33.0) 02/02/2024 CE (generalized anxiety disorder) (ICD-10 - F41.1) 02/02/2024 MDD (major depressive disorder), recurrent episode, mild (ICD-10 - F33.0) 03/15/2024 MDD (major depressive disorder), recurrent episode, mild (ICD-10 - F33.0) 04/26/2024 MDD (major depressive disorder), recurrent episode, mild (ICD-10 - F33.0) 01/02/2024 Other On high dose of Adderall (60mg total daily). SBP 159 today. Has family history of cardiac . Discussed increased risk of adverse cardiac events with stimulant use. Start cross taper with atomoxetine. Start Atomoxetine 18mg daily in the morning, decrease Adderall XR to 30mg daily. Will continue cross taper as tolerated on monthly basis. Discussed controlled substance policy regarding stimulants and cannabis, pt agreeable to stop cannabis. No more stimulant fills if +THC. Patient educated on all medications including potential benefits, side effects, risks. Educated on proper dosing schedule and importance of compliance. Referred to counseling. Declined medication for MDD/CE at this time, wants to try lifestyle changes/counselin g. 02/02/2024 Other Increase atomoxetine to 40mg daily for ADHD. Patient educated on all medications including potential benefits, side effects, risks. Educated on proper dosing schedule and importance of compliance. 03/15/2024 Other Stable, continue atomoxetine 40mg daily for ADHD management. Patient educated on all medications including potential benefits, side effects, risks. Educated on proper dosing schedule and importance of compliance. Continue to monitor blood pressure, discussed keeping BP log at home. -Assessment and treatment plan reviewed with patient. -Compliance with treatment plan importance discussed. -Discussed the risks/benefits of this medication -Discussed medication side effects. -Contact office if symptoms worsen. -Discussed that it can take up to 6-8 weeks to see full therapeutic effects of psychotropic medications. -Crisis prevention hotline 988. 04/26/2024 Other Stable, continue atomoxetine 40mg daily for adhd management. Patient educated on all medications including potential benefits, side effects, risks. Educated on proper dosing schedule and importance of compliance. -Assessment and treatment plan reviewed with patient. -Compliance with treatment plan importance discussed. -Discussed the risks/benefits of this medication -Discussed medication side effects. -Contact office if symptoms worsen. -Discussed that it can take up to 6-8 weeks to see full therapeutic effects of psychotropic medications. -Crisis prevention hotline 988. Plan Of Treatment Next Appt Details Provider Name:Ciara Ambrose, 07/19/2024 01:30:00 PM, [address], [place], [address], Insurance Providers Payer Name Payer Address Payer Phone Subscriber Number Group Number Insured Name Patient Relationship to Insured Coverage Start Date Coverage End Date [facility] [address] [place] [address] [id number] Vito Gastelum Self - patient is the insured Medical (General) History Medical History History ICD Code abdominal aortic aneurysm: No atrial fibrillation: No chronic fatigue syndrome: No essential tremor: No hyperlipidemia: No hypertension: No Parkinson's disease: No restless leg syndrome: No stroke: No subdural hematoma: No type 1 diabetes mellitus: No type 2 diabetes mellitus: No vitamin B12 deficiency: No vitamin D deficiency: No Surgical History Surgery Date(Month/Year) galbladder removed 2016 sbt ablation 2018 kidneystone/stent placement 2022 right torn miniscus 09/2023 Hospitalization History Reason Date(Month/Year) kidney stone/placement 2022 galbladder 2017
--- OUTSIDE RECORDS SUMMARY | 2024-07-05 00:56 | XMS_ITS | Clinical Summary ---
Author Organization [facility] Address [address] [place] [address] Care Team Providers Care Labor And Employment Paralegal Name Role Phone Farshad Martinez MD Primary Care Provider [phone] Allergies No known active allergies Medications amphetamine-dex troamphetamine (ADDERALL XR) 10 mg Extended Release 24 hour capsule Take 1 Capsule (10 mg) by mouth daily. Max Daily Amount: 10 mg 30 Capsule 06/21/2023 6:37 PM CDT 06/16/2023 Active amphetamine-dex troamphetamine (ADDERALL XR) 30 mg Extended Release 24 hour capsule Take 1 Capsule (30 mg) by mouth daily. Max Daily Amount: 30 mg 30 Capsule 06/21/2023 6:37 PM CDT 06/16/2023 Active dextroamphetami ne-amphetamine (ADDERALL) 20 mg tablet Take 1 Tablet (20 mg) by mouth daily. Max Daily Amount: 20 mg 30 Tablet 06/21/2023 6:37 PM CDT 06/16/2023 Active benzonatate (TESSALON) 100 mg capsule Take 1 Capsule (100 mg) by mouth 3 times daily as needed. 42 Capsule 02/27/2024 Active Active Problems Problem Noted Date Diagnosed Date COLTON (obstructive sleep apnea) 04/28/2016 Fatty liver 07/09/2010 Elevated liver enzymes 09/08/2009 Snoring 08/20/2009 Anxiety state 08/20/2009 Pain of upper abdomen Resolved Problems Problem Noted Date Diagnosed Date Resolved Date Sudden right hearing loss 06/03/2010 Encounters Date Type Department Care Team Description 07/02/2024 External Device Data [facility] ABSTRACTION Provider, Abstract 07/02/2024 External Device Data [facility]CTION Provider, Abstract 06/19/2024 External Device Data [facility] Provider, Abstract 06/18/2024 External Device Data [facility] Provider, Abstract 05/29/2024 External Device Data [facility]CTION Provider, Abstract 05/21/2024 External Device Data [facility]STRACTION Provider, Abstract 05/02/2024 External Device Data [facility]STRACTION Provider, Abstract from Last 3 Months Immunizations Immunization Administration Dates Next Due Influenza Seasonal Unspecified Formulation IM ,01/23/2014 Family History Medical History Relation Name Comments Heart Disease Father atrial fibrill ation Heart Disease Maternal Grandfather Heart Disease Paternal Grandfather Depression Paternal Grandmother Relation Name Status Comments Father Maternal Grandfather Paternal Grandfather Paternal Grandmother Social History Tobacco Use Types Packs/Day Years Used Date Smoking Tobacco: Never Smokeless Tobacco: Never Tobacco Cessation:Counseling Given: No Alcohol Use Standard Drinks/Week Comments Yes 0.8 (1 standard drink = 0.6 oz p ure alcohol) Sex and Gender Information Value Date Recorded Sex Assigned at Not on file Legal Sex Male 4: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 CONTRACT ADMIN Gender Identity Not on file Sexual Orientation Not on file Last Filed Vital Signs Vital Sign Reading Time Taken Comments Blood Pressure 126/80 12/26/2017 8:57 AM CDT Pulse 57 11/22/2016 1:33 PM CDT Temperature 37.1 C (98.8 F) 01/26/2017 10:04 AM CDT Respiratory Rate 16 11/22/2016 12:00 PM CDT Oxygen Saturation 98% 11/22/2016 1:33 PM CDT Inhaled Oxygen Concentration - - Weight 108.4 kg (239 lb) 12/26/2017 8:57 AM CDT Height 177.8 cm (5' 10 ) 12/26/2017 8:57 AM CDT Body Mass Index 34.29 12/26/2017 8:57 AM CDT Plan of Treatment Health Maintenance Due Date Last Done Comments DTAP/TDAP/TD VACCINES (1 - Tdap) 1997 HEPATITIS B VACCINES (1 of 3 - 19+ 3-dose series) 1997 COLORECTAL SCREENING 07/14/2023 Colorectal Cancer Screening 07/14/2023 FIT-DNA Q 3 years 07/14/2023 FIT/FOBT Q 1 year 07/14/2023 Flex Sig/CT Colonography Q 5 years 07/14/2023 INFLUENZA VACCINE (#1) 2023 6, 01/23/2014 Preventative Visit- Commercial 04/10/2024 03/23/2016, 02/14/2014, 08/20/2009 HPV VACCINES Aged Out No longer eligi ble based on patient's age to complete this topic PNEUMOCOCCAL VACCINE 0-49 YEARS Aged Out No longer eligible b ased on patient's age to complete this topic Insurance [employer] O OPEN ACCESS RX [facility] Advance Directives For more information, please contact: [phone] * Full Code (Latest Code Status on File) Date Activated Date Inactivated Comments 04/28/2016 3:54 PM 04/28/2016 9:00 PM * Full Code Date Activated Date Inactivated Comments 04/28/2016 3:54 PM 04/28/2016 3:54 PM * Full Code Date Activated Date Inactivated Comments 04/28/2016 1:13 PM 04/28/2016 3:54 PM * Full Code Date Activated Date Inactivated Comments 04/28/2016 10:32 AM 04/28/2016 1:13 PM Care Teams Labor And Employment Paralegal Relationship Specialty Start Date End Date Farshad Martinez MD [address] [place] [phone] PCP - General Internal Medicine 08/19/09
--- OUTSIDE RECORDS SUMMARY | 2024-07-05 00:56 | XMS_ITS | Encounter Summary ---
Author Organization [facility] Address [address] [place] [address] Care Team Providers Care Police Chief Name Role Phone Farshad Martinez MD Primary Care Provider [phone] Encounter Details Date Type Department Care Team (Late st Contact Info) Description 09/16/1998 Outpatient Historical 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
--- OUTSIDE RECORDS SUMMARY | 2024-07-05 00:56 | XMS_ITS | Data Portability ---
Author Organization [place] [facility], Main Office Address [address] [place] [address] Assessment No assessment recorded. Plan of Treatment Reminders Order Date Submit Date Provider Last Modified By Organization Details Last Modified Time Details Appointments None recorded . Lab CMP, serum or plasma 023 03/10/20 [email or web address] Not available 3 00:54:11 Referral None recorded . Procedures None recorded . Surgeries None recorded . Imaging US, liver 023 03/10/20 [email or web address] Not available 4 08:26:22 Medication Orders None recorded . Patient TargetsNo targets recorded. Patient InstructionsNo instructions recorded. Reason for Referral None Reported. Results Created Date Observation Date Name Description Value Unit Range Abnormal Flag Note LastModifiedBy Organization Detail LastModifiedTime 03/10/20 23 03/10/2023 COMPR EHENS HEYDI METAB OLIC PANEL glucose 97 mg/dL 65-99 normal Fasti ng refer ence inter miryam Not Available [facility] [address] [place], [address], 03/11/2023 00:54:11 03/10/20 23 03/10/2023 COMPR EHENS HEYDI METAB OLIC PANEL urea nitrogen (BUN) 12 mg/dL 7-25 normal Not Available [facility] [place] [address] [place], [address], 03/11/2023 00:54:11 03/10/20 23 03/10/2023 COMPR EHENS HEYDI METAB OLIC PANEL creatinine 0.94 mg/dL 0.60-1 .29 normal Not Available [facility] [address] [place], [address], 03/11/2023 00:54:11 03/10/20 23 03/10/2023 COMPR EHENS HEYDI METAB OLIC PANEL eGFR 103 mL/mi n/1.7 3m2 > or = 60 normal Not Available [address], [address], 03/11/2023 00:54:11 03/10/20 23 03/10/2023 COMPR EHENS HEYDI METAB OLIC PANEL BUN/creatini ne ratio SEE NOTE: (calc ) 6-22 Not Repor morgan: BUN and Creat inine are withi n refer ence range . Not Available [address], [address], 03/11/2023 00:54:11 03/10/20 23 03/10/2023 COMPR EHENS HEYDI METAB OLIC PANEL sodium 141 mmol/ L 135-14 6 normal Not Available [address], [address], 03/11/2023 00:54:11 03/10/20 23 03/10/2023 COMPR EHENS HEYDI METAB OLIC PANEL potassium 4.9 mmol/ L 3.5-5. 3 normal Not Available [address], [address], 03/11/2023 00:54:11 03/10/20 23 03/10/2023 COMPR EHENS HEYDI METAB OLIC PANEL chloride 107 mmol/ L 98-110 normal Not Available [address] [address] [place], [address], 03/11/2023 00:54:11 03/10/20 23 03/10/2023 COMPR EHENS HEYDI METAB OLIC PANEL carbon dioxide 29 mmol/ L 20-32 normal Not Available [address], [address], 03/11/2023 00:54:11 03/10/20 23 03/10/2023 COMPR EHENS HEYDI METAB OLIC PANEL calcium 9.5 mg/dL 8.6-10 .3 normal Not Available [address], [address], 03/11/2023 00:54:11 03/10/20 23 03/10/2023 COMPR EHENS HEYDI METAB OLIC PANEL protein, total 7.3 g/dL 6.1-8. 1 normal Not Available [address], [address], 03/11/2023 00:54:11 03/10/20 23 03/10/2023 COMPR EHENS HEYDI METAB OLIC PANEL albumin 4.5 g/dL 3.6-5. 1 normal Not Available [address], [address], 03/11/2023 00:54:11 03/10/20 23 03/10/2023 COMPR EHENS HEYDI METAB OLIC PANEL globulin 2.8 g/dL_ (calc ) 1.9-3. 7 normal Not Available [address], [address], 03/11/2023 00:54:11 03/10/20 23 03/10/2023 COMPR EHENS HEYDI METAB OLIC PANEL albumin/glob ulin ratio 1.6 (calc ) 1.0-2. 5 normal Not Available [address], [address], 03/11/2023 00:54:11 03/10/20 23 03/10/2023 COMPR EHENS HEYDI METAB OLIC PANEL bilirubin, total 1.2 mg/dL 0.2-1. 2 normal Not Available [address], [address], 03/11/2023 00:54:11 03/10/20 23 03/10/2023 COMPR EHENS HEYDI METAB OLIC PANEL alkaline phosphatase 60 U/L 36-130 normal Not Available [facility] [address] [address], [place], [address], 03/11/2023 00:54:11 03/10/2003/10/2023 COMPR EHENS HEYDI METAB OLIC PANEL AST 32 U/L 10-40 normal Not Available [facility] [address] [place], [address], 03/11/2023 00:54:11 03/10/2003/10/2023 COMPR EHENS HEYDI METAB OLIC PANEL ALT 72 U/L 9-46 high Not Available [facility] [address] [address] [place], [address], 03/11/2023 00:54:11 Result Notes None recorded. Problems Name Problem SNOMED Code Status Onset Date Resolution Date Notes Provider Name and Address Organization Details Recorded Time Attention deficit hyperactivity disorder 266509750 Active 2022 VALENTIN Knowles [facility] 3 11:45:48 Liver enzymes level above reference range 973709846 Active 2022 MANUEL Liu [address] [place] [address], [address] [place] [address] [facility] 3 12:16:15 Problem Notes None recorded. Procedures Surgical History Date Name Laterality Status Provider Name and Address Organization Details Recorded Time cholecystectomy completed VALENTIN Knowles [facility] 03/10/2023 11:36:06 other completed VALENTIN Knowles [facility] [employer] [facility] 03/10/2023 11:36:23 Kidney Stones completed VALENTIN Knowles [facility] 03/10/2023 11:36:36 Imaging Results None recorded. Procedure Notes None recorded. Medical Equipment None Reported. Allergies No known drug allergies Medications Name Sig Start Date Stop Date Status Note LastModified by Organization Details LastModified Time dextroamp hetamine- amphetami ne 20 mg tablet TAKE 1 TABLET BY MOUTH ONCE DAILY FOR 30 DAYS active Not Available Not Available No t Available dextroamp hetamine- amphetami ne 15 mg tablet TAKE 1 TABLET BY MOUTH EVERY DAY FOR 1 MONTH 2022 completed Not Available Not Available Not Available dextroamp hetamine- amphetami ne ER 10 mg 24hr capsule,e xtend release TAKE 1 CAPSULE BY MOUTH DAILY FOR 30 DAYS active Not Available Not Available No t Available dextroamp hetamine- amphetami ne ER 30 mg 24hr capsule,e xtend release TAKE 1 CAPSULE BY MOUTH ONCE DAILY FOR 30 DAYS active Not Available Not Available No t Available dextroamp hetamine- amphetami ne ER 5 mg 24hr capsule,e xtend release TAKE 1 CAPSULE BY MOUTH EVERY DAY FOR 30 DAYS 2022 completed Not Available Not Available Not Available Vitals Date Recorded Body height Body mass index (BMI) Body weight Respiratory rate Oxygen saturation Oxygen saturation in Arterial blood by Pulse oximetry Heart rate Systolic blood pressure Diastolic blood pressure Provider Name and Address Organization Details Last Updated DateTime 3 177.8 cm 36.2 kg/m2 161904. 28 g 16 /min 98 % 98 % 76 /min 122 mm[Hg] 80 mm[Hg] VALENTIN Knowles [facility] [employer] 11:41:35 Social History Question Answer Notes LastModified by Organizat ion Details LastModified Time Tobacco Smoking Status Never Smoker [facility] 03/10/2023 11:35:02 What Is Your Level Of Alcohol Consumption? Moderate [email or web address] Information not available 03/10/2023 What Is Your Level Of Caffeine Consumption? Heavy [email or web address] Information not available 03/10/2023 In The 14 Days Before Symptom Onset, Have You Had Close Contact With A Laboratory-confirm ed COVID-19 While That Case Was Ill? No [email or web address] Information n ot available 03/09/2023 In The 14 Days Before Symptom Onset, Have You Had Close Contact With A Person Who Is Under Investigation For COVID-19 While That Person Was Ill? No [email or web address] Information not available 03/09/2023 Are You Currently Employed? Yes [email or web address] Information not available 03/10/2023 What Type Of Diet Are You Following? 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 No [email or web address] Information no t available 03/10/2023 Do You Use Insect Repellent Routinely? No [email or web address] Information not available 03/10/2023 What Is Your Relationship Status? [email or web address] Information not available 03/10/2023 Do You Use Your Seat Belt Or Car Seat Routinely? Yes Information not available 03/10/2023 Do You Have Smoke And Carbon Monoxide Detectors In Your Home? Yes [email or web address] Information not available 03/10/2023 Do You Use Any Illicit Or Recreational Drugs? No [email or web address] Information not available 03/10/2023 Do You Use Sunscreen Routinely? Yes [email or web address] Information not available 03/10/2023 Have You Recently Traveled Abroad? No [email or web address] Information not available 03/09/2023 Do You Have Any Dietary Restrictions? No [email or web address] Information not available 03/10/2023 Do You Or Have You Ever Used Any Other Forms Of Tobacco Or Nicotine? No [email or web address] Information not available 03/10/2023 Sex: Unknown Functional Status Question Answer Note LastModified by Organization D etails LastModified Time What is your exercise level? Moderate [email or web address] Information not available 03/10/2023 Mental Status None recorded. Family History Relationship Description Onset Age of this Age Resolved Age Notes LastModified by Organization Details LastModified Time Mother Hypertensive disorder [email or web address] Not available 03/10 11:34:44 Father Myocardial infarction [email or web address] Not available 04/2022 11:34:51 Medical History Condition Response EYE PROBLEMS Y ANXIETY DISORDER Y KIDNEY STONES Y Past Encounters Encounter ID Performer Location Encounter Start Date Encounter Closed Date Diagnosis/Indication Diagnosis SNOMED-CT Code Diagnosis ICD10 Code Diagnosis Note [id number] MANUEL Liu [facility] Internal Med [place] [address] [place] [address] 03/10/2023 11:33:38 03/10/2023 12:15:17 Liver enzymes level above reference range 218042447 R74.01 Historical labs reviewed. It is not known if patient had Hep A illness and has abs or was vaccinated and has abs. He cannot recall if he's Hep A vaccinated . We will check repeat CMP lab and check liver ultrasound . Long-term drug therapy 353167635 Z79.899 Attention deficit hyperactivity disorder 426630098 F90.9 stable on adderall medication from [facility] Concerns Section Related Observation LastModified by Organization Detai ls LastModified Time None Recorded Concern Status LastModified by Organization Details LastModified Time None Recorded Advance Directives Directive None Recorded Payers Encounter Date Sequence Insurance Name Policy Number Policy Hines Covered Member ID Hines Member ID Guarantor Name 03/10/2023 1 [place] [id number] Vito Oriana [id number] Vito Oriana 03/10/2023 2 [employer] [id number] Tawny Oriana [id number] 6SOI [employer]to [employer] Notes Date Note Type Note Provider Name and Address Organization Details Recorded Time 03/10/2023 text/html Adult ADHDReport ed bypatient.Timing of Symptoms:chronic ADHD Context:increased productivity at work; improved school performance; able to set limits with obligations; no dysfunction in family; no financial problems Modifying factors:medications as directed ADHD Associated Symptoms Inattention:able to pay attention; well organized; does not make careless mistakes; not easily distracted; attention to detail; not forgetful; no difficulty focusing; not bored easily; no daydreaming; no confusion; no difficulty processing information; no difficulty following instructions ADHD Associated Symptoms Impulsivity:patient; does not interrupt conversations/activiti es; does not blurt out inappropriate comments; shows emotion with restraint ADHD Associated Symptoms Hyperactivity:does not fidget/squirm; no excessive talking; does not run/move in inappropriate situations; not constantly in motion; no difficulty with quiet tasks/activitiesNotes: He is seeing psych and that is prescribing his adderall.Generic HPI TemplateReported bypatient.Notes:Pt is here to get established and have a wellness. hx of elevated liver enzymes was told he had Hep A. He never had symptoms and isn't sure that is correct. wellness MANUEL Liu [address] [facility], [facility] [[email or web address] [address], [place], [address], [facility] - [facility] 04/04/2023 21:29:35
--- OUTSIDE RECORDS SUMMARY | 2024-07-05 00:56 | XMS_ITS | Encounter Summary ---
Author Organization [facility] Address [address] [place] [address] Care Team Providers Care Property Caretaker Name Role Phone Farshad Martinez MD Primary Care Provider [phone] Encounter Details Date Type Department Care Team (Late st Contact Info) Description 08/26/1998 Outpatient Historical [facility]O & Charles Alfred MD Social History Tobacco Use Types Packs/Day Years Used Date Smoking Tobacco: Never Assessed Sex and Gender Information Value Date Recorded Sex Assigned at Not on file Legal Sex Male 4:40 AM [employer] Gender Identity Not on file Sexual Orientation Not on file documented as of this encounter Plan of Treatment Not on file documented as of this encounter Visit Diagnoses Not on filedocumented in this encounter Care Teams Property Caretaker Relationship Specialty Start Date End Date Farshad Martinez MD [address] [facility] [address] [place] [address] PCP - General Internal Medicine 08/19/09 documented as of this encounter
--- OUTSIDE RECORDS SUMMARY | 2024-07-05 00:56 | XMS_ITS ---
Author Organization [facility] Address [address] [place] [address] Care Team Providers Care Bulk Sausage Casing Tier Off Name Role Phone Zora Milian Primary Care Provider Ciara Ledesma Unavailable [phone] Allergies No Known Allergies REASON FOR VISIT follow up Medications Medication SIG (Take, Route, Frequency, Duration) [...] past year? Monthly or less (1 point) Vital Signs Blood pressure systolic 148 mm Hg 04/26/19 25 Blood pressure diastolic 93 mm Hg 025 Heart Rate 71 /min 04/26/2024 Height 70.5 in 04/26/2024 Height-cm 179.07 cm 04/26/2024 Encounters Encounter Location Date Provider Diagnosis [facility] [employer] [facility] [address] [place] [address] 04/26/2024 Ciara Ambrose ADHD (attention defi cit hyperactivity disorder), inattentive type F90.0 ; CE (generalized anxiety disorder) F41.1 and MDD (major depressive disorder), recurrent episode, mild F33.0 Assessments Encounter Date Diagnosis (ICD Code) Assessment Notes Treatment Notes Treatment Clinical Notes Section Notes 04/26/2024 ADHD (attention deficit hyperactivity disorder), inattentive type (ICD-10 - F90.0) Discussed risks/benefits/al ternatives to atomoxetine, including GI side effects, weight loss, irritability, constipation, sexual dysfunction, increase in blood pressure and liver damage. Patient denies any h/o cardiovascular disease, including hypertension, tachyarrhythmias. 04/26/2024 CE (generalized anxiety disorder) (ICD-10 - F41.1) 04/26/2024 MDD (major depressive disorder), recurrent episode, mild (ICD-10 - F33.0) 04/26/2024 Other Stable, continue atomoxetine 40mg daily [...] -Crisis prevention hotline 988. Plan Of Treatment Medication Medication Name Sig Start Date Stop Date Notes Atomoxetine HCl 40 MG 1 capsule in the m orning Orally Once a day for 90 days Treatment Notes Assessment Notes ADHD (attention deficit hype ractivity disorder), inattentive type Discussed risks/benefits/alternatives to atomoxetine, including GI side effects, weight loss, irritability, constipation, sexual dysfunction, increase in blood pressure and liver damage. Patient denies any h/o cardiovascular disease, including hypertension, tachyarrhythmias. Other Stable, continue atomoxetine 40mg daily for adhd management. Patient educated on all medications including potential benefits, side effects, risks. Educated on proper dosing schedule and importance of compliance. Next Appt Details Follow Up: 2 Months, Reason: medication follow up Provider Name:Ciara Ambrose, 07/19/2024 01:30:00 PM, [address], [facility] [address], [place], [address], Progress Notes * Elizabeth GASTELUMOB:[birth year] (43 yo M)Acc No.[id number]:04/26/2024 Patient: Vito FORBES Provider: MATI HUANG :1980 A ge:43 Y S ex:Male Date:04/26/2024 Phone: Address:[address] [place], [place] [id number] Pcp:Zora JACKSON Subjective: * Chief Complaints: * F ollow up * HPI: D epression Screening: CE-7 (2018 Edition) F eeling nervous, anxious, or on edge?Not at all, N ot being able to stop or control worrying N ot at all, W orrying too much about different things N ot at all, T rouble relaxing N ot at all, B eing so restless that it is hard to sit still N ot at all, B ecoming easily annoyed or irritable N ot at all, F eeling afraid as if something awful might happen N ot at all. C [place]-Suicide Severity Rating Scale: Suicide Risk (CSRS-screener) i n the past one month Have you wished you were or wished you could go to sleep and not wake up? N o, i n the past one month Have you actually had any thoughts of killing yourself? N o, H ave you ever done anything, started to do anything, or prepared to do anything to end your life? N o. D epression screening: PHQ-9 L ittle interest or pleasure in doing things N ot at all, F eeling down, depressed, or hopeless N ot at all, T rouble falling or staying asleep, or sleeping too much N ot at all, F eeling tired or having little energy N ot at all, P oor appetite or overeating N ot at all, F eeling bad about yourself or that you are a failure, or have let yourself or your family down N ot at all, T rouble concentrating on things, such as reading the newspaper or watching television N ot at all, M oving or speaking so slowly that other people could have noticed; or the opposite, being so fidgety or restless that you have been moving around a lot more than usual N ot at all, T houghts that you would be better off or of hurting yourself in some way N ot at all. I ntervention D epression Screening Findings N egative, S uicide Risk Assessment Performed . P ast Psychiatric Hospitalizations: Previous psychiatric hospitalizations P revious Psychiatric Hospitalization N o. P ast History of Suicidal attempt H ave you ever attempted suicide in the past N o. Social hx: . Has three children. 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 Medical hx: denies chronic medical history. +family history of heart disease, father in 2019 from heart attack. Past psychiatric hx- Past [facility] admissions/IOP/PHP: none Previous suicide attempts: denies Previous medications: methylphenidate. Substance use: cannabis about once weekly to help with anxiety. H istory of Presenting Problem: Medication Side Effects n one . A nxiety d enies feeling anxious . D epression d enies feeling depressed. . M ood lability?no hx elmer . P sychosis n o hx psychosis . S leep disturbance w ith a history of sleep apnea. S uicidal ideation d enies . A DHD e asily distracted by extraneous stimuli, forgetful in daily activities, avoids, dislikes, or is reluctant to engage in tasks that require sustained mental effort, does not follow through on instructions and fails to finish work, fails to give close attention to details or makes careless mistakes in schoolwork, work, or other activities, has difficulty sustaining attention in tasks or play activity. P sychotherapy n o current counselor . Here for follow up. No medication changes made last apt. Reports he is doing well, denies recent stressors. Feels the ADHD overall is pretty good , reports he has seen an overall trend at being able to complete tasks and less hyperfixation. States he is managing his ADHD well on current medication dose. Able to recognize the symptoms and cope/compensate for the symptoms. Denies feeling depressed or anxious. Sleep is good, getting about 6-8 hours nightly. Energy is good. Appetite is good. * ROS: C ardiovascular: Patient denies c hest pain, dizziness, shortness of breath.? P sychiatric: Patient denies a uditory / visual hallucinations, delusions, psychosis, suicidal thoughts, elmer, anxiety, difficulty concentrating, loss of appetite, eating disorder. Nasreen SANTANA for details. * Medical History: * Surgical History: king colunga removed bt ablation 2019kidneystone/stent placement 2022right torn miniscus 09/2023 * Hospitalization/Major Diagno stic Procedure: * Family History: F ather: , diagnosed with Heart disease. M other: alive, diagnosed with Essential hypertension. M aternanikki Grandfather: , diagnosed with Heart disease. * Social History: T obacco Use: T obacco Control (Standard) T obacco use: N onsmoker. D rug/Alcohol: D rugs H ave you used drugs other than those for medical reasons in the past 12 months??No. A EMILIE-C (Standard) D id you have a drink containing alcohol in the past year? Y es, H ow often did you have six or more drinks on one occasion in the past year? N ever (0 point), H ow many drinks did you have on a typical day when you were drinking in the past year? 1 or 2 drinks (0 point), H ow often did you have a drink containing alcohol in the past year? M onthly or less (1 point). M iscellaneous: O ccupation: Stitchdowns Toe Former. Safety issues A re there any firearms in the house? N o. A dvance Care Planning A re you your own decision-maker Y es, D o you have Power of Cyber Security Specialist for Health or Medical? N o, D o you have a power of accountant controller for health? Y es, D o you have power of accountant controller for Medical ? Y es, I f yes, then please bring the POA paperwork so that we can upload it. N o. S ocial History: H ousehold M arital Status: M arried, N umber of Adults in household: 2 , N umber of Children in Household: 3 , L evel of Education: F in[employer]. * Medications: T akingFish Oil 500 MG Capsule 1 capsule Orally once daily dilTIAZem HCl ER Coated Beads 120 MG Capsule Extended Release 24 Hour TAKE 1 CAPSULE BY MOUTH EVERY DAY Oral Atomoxetine HCl 40 MG Capsule 1 capsule in the morning Orally Once a day Medication List reviewed and reconciled with the patientTaking Fish Oil 500 MG Capsule 1 capsule Orally once daily Taking dilTIAZem HCl ER Coated Beads 120 MG Capsule Extended Release 24 Hour TAKE 1 CAPSULE BY MOUTH EVERY DAY Oral Taking Atomoxetine HCl 40 MG Capsule 1 capsule in the morning Orally Once a day Medication List reviewed and reconciled with the patient * Allergies: N .K.D.A.no[Allergies Verified] Objective: * Vitals: B P:148/93mm Hg, HR:71/min, Ht: 70.5 in, Ht-cm: 179.07 cm. * Examination: P sychiatry: Appearance: w ell-groomed. Abnormal body movements: n one. Affect / mood: a ppropriate. Attention: g ood. Attitude: c ooperative. Homicidal ideation: n one. Suicidal ideation: n one. Degree of awareness of surroundings: w ithin normal limits.? Delusions: n o. Hallucinations: n o. Insight: g ood. Judgement: g ood. Orientation: a wake, alert and oriented x 3. Perceptual disorders: n o perceptual disorder noted. Psychomotor activity: w ithin normal range. Speech / language: n ormal rate, volume, and articulation (RVR), clear and coherent. Thought content: a ppropriate. Thought process: i ntact. Assessment: * Assessment: 1. A DHD (attention deficit hyperactivity disorder), inattentive type - F90.0 (Primary) ? 2 . G AD (generalized anxiety disorder) - F41.1 3 . M DD (major depressive disorder), recurrent episode, mild - F33.0 Plan: * Treatment: 2. O thers Notes: Stable, continue atomoxetine 40mg daily for adhd management. Patient educated on all medications including potential benefits, side effects, risks. Educated on proper dosing schedule and importance of compliance. Clinical Notes: -Assessment and treatment plan reviewed with patient. -Compliance with treatment plan importance discussed. -Discussed the risks/benefits of this medication -Discussed medication side effects. -Contact office if symptoms worsen. -Discussed that it can take up to 6-8 weeks to see full therapeutic effects of psychotropic medications. -Crisis prevention hotline 890. * Procedure Codes: 9 6127 BEHAV ASSMT W/SCORE & DOCD/STAND [id number] VISIT COMPLEXITY INHERENT TO ONGOING CARE RELATED TO A PATIENT'S SINGLE, SERIOUS CONDITION OR A COMPLEX [id number] CLIN DEPRESSION SCREEN DOC * Preventive Medicine: Counseling: B P Management: F IRST HYPERTENSIVE BP READING FOLLOW-UP PLAN: Peyton ollow-up 1 month Follow up with your PCP, Nikki HERBERT RECOMMENDATION: Nikki herbert education, REFERRAL TO ALTERNATIVE / PRIMARY CARE PROVIDER: R eferral to general medical service Recommended Nonpharmacologic Interventions (Lifestyle Modifications) - Weight ReductionA heart-healthy diet , such as Dietary Approaches to Stop Hypertension (DASH) Eating PlanDietary Sodium RestrictionIncreased Physical ActivityModeration in alcohol consumption. * Follow Up: 2 Months (Reason: medication follow up) * Billing Information: * Visit Code: 08626 OFFICE OUTPATIENT VISIT 15 MINUTES EXPANDED HISTORY AND EXAM/LOW MEDICAL DECISION MAKING. * Procedure Codes: 31123 BEHAV ASSMT W/SCORE & DOCD/STAND INSTRUMENT. G2211 VISIT COMPLEXITY INHERENT TO ONGOING CARE RELATED TO A PATIENT'S SINGLE, SERIOUS CONDITION OR A COMPLEX CONDITION. G8431 CLIN DEPRESSION SCREEN DOC. * ER LAW CLERK Sign off status: Completed true * Provider: MATI HUANG Date: 0 04/26/2024 Generated for Faustina ko/Shamar/Gurinderitting on: 0 07/05/2024 12:56 AM CDT History and Physical Notes * HPI (History of Present Illness) Category Sub-Category Detail Notes Category Not es History of Presenting Problem Anxiety denies feeling anxious Here for follow up. No medication changes made last apt. Reports he is doing well, denies recent stressors. Feels the ADHD overall is pretty good , reports he has seen an overall trend at being able to complete tasks and less hyperfixation. States he is managing his ADHD well on current medication dose. Able to recognize the symptoms and cope/compensate for the symptoms. Denies feeling depressed or anxious. Sleep is good, getting about 6-8 hours nightly. Energy is good. Appetite is good. Depression denies feeling depre ssed. Suicidal ideation denies Sleep disturbance with a history of sl eep apnea Psychosis no hx psychosis Mood lability no hx elmer ADHD easily distracted by extraneous stimuli, forgetful in daily activities, avoids, dislikes, or is reluctant to engage in tasks that require sustained mental effort, does not follow through on instructions and fails to finish work, fails to give close attention to details or makes careless mistakes in schoolwork, work, or other activities, has difficulty sustaining attention in tasks or play activity Psychotherapy no current counselor Medication Side Effects none Past Psychiatric Hospitalizations Previous psychiatric hospitalizations Previous Psychiatric Hospitalization: No Social hx: . Has three children. 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 Medical hx: denies chronic medical history. +family history of heart disease, father in 2019 from heart attack. Past psychiatric hx- Past [facility] admissions/IOP/PHP: none Previous suicide attempts: denies Previous medications: methylphenidate. Substance use: cannabis about once weekly to help with anxiety. Past History of Suicidal attempt Have yo u ever attempted suicide in the past: No Depression screening PHQ-9 Little inte rest or pleasure in doing things: Not at all Feeling down, depressed, or hopeless: No t at all Trouble falling or staying asleep, or sl eeping too much: Not at all Feeling tired or having little energy: N ot at all Poor appetite or overeating: Not at all Feeling bad about yourself o r that you are a failure, or have let yourself or your family down: Not at all Trouble concentrating on thi ngs, such as reading the newspaper or watching television: Not at all Moving or speaking so slowly that other people could have noticed; or the opposite, being so fidgety or restless that you have been moving around a lot more than usual: Not at all Thoughts that you would be b balwinder off or of hurting yourself in some way: Not at all Intervention Depression Screening Findings: N egative Suicide Risk Assessment Performed: ____ Depression Screening CE-7 (2018 Edition) Feelin g nervous, anxious, or on edge: Not at all Not being able to stop or control worryi ng: Not at all Worrying too much about different things : Not at all Trouble relaxing: Not at all Being so restless that it is hard to sit still: Not at all Becoming easily annoyed or irritable: No t at all Feeling afraid as if something awful winsome ht happen: Not at all [place]-Suicide Severity Rating Scale Suicide Risk (CSRS-screener) in the past one month Have you wished you were or wished you could go to sleep and not wake up?: No in the past one month Have y ou actually had any thoughts of killing yourself?: No Have you ever done anything, started to do anything, or prepared to do anything to end your life?: No Examination Category Sub-Category Detail Notes Category Not es Psychiatry Appearance: well-groomed Attitude: cooperative Psychomotor activity: within normal rang e Abnormal body movements: none Attention: good Degree of awareness of surroundings: wit hin normal limits Orientation: awake, alert and theodore ented x 3 Affect / mood: appropriate Speech / language: normal rate, volume, and articulation (RVR), clear and coherent Insight: good Judgement: good Thought process: intact Thought content: appropriate Perceptual disorders: no perceptual diso rder noted Suicidal ideation: none Homicidal ideation: none Delusions: no Hallucinations: no
--- OUTSIDE RECORDS SUMMARY | 2024-07-05 00:56 | XMS_ITS | Referral Summary ---
Author Organization [facility] Address [address] [place] [address] Care Team Providers Care Principal Software Architect Name Role Phone Johnathan Ford MD Unavailable [phone] Zora Soliman Primary Care Pr ovider Bennie Sofia NP Unavailable [phone] Allergies No known active allergies Medications dextroamphetami [...] strips from his Holter monitor done at [place]. Chest pain 01/08/2019 Assessment & Plan (01/08/2019 [...] Anxiety state 08/20/2009 Snoring 08/20/2009 Fever, unspecified Social History Tobacco Use Types Packs/Day Years [...] often do you attend chur ch or religion services? Never 12/16/2021 Do you belong to any clubs o r organizations such as congregation groups, unions, fraternal or athletic groups, or [...] and heating? Not hard at all 12/16/2021 [facility] Occupat [facility] - Occupational Stress Questionnaire Answer Date Recorded [...] place to sleep or slept in a snf (including now)? 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 Not on file Not on file Last Filed Vital Signs Vital Sign Reading Time Taken Comments Blood Pressure 133/88 02/27/2024 12:24 PM PSYCHIATRIC AIDE INSTRUCTOR Pulse 80 02/27/2024 12:24 PM PSYCHIATRIC AIDE INSTRUCTOR Temperature 36.9 C (98.4 F) 02/27/2024 12:24 PM PSYCHIATRIC AIDE INSTRUCTOR Respiratory Rate 20 02/27/2024 12:24 PM PSYCHIATRIC AIDE INSTRUCTOR Oxygen Saturation 99% 02/27/2024 12:24 PM PSYCHIATRIC AIDE INSTRUCTOR Inhaled Oxygen Concentration - - Weight 122.9 kg (271 lb) 02/27/2024 12:24 PM PSYCHIATRIC AIDE INSTRUCTOR Height 180.3 cm (5' 11 ) 02/27/2024 12:24 PM PSYCHIATRIC AIDE INSTRUCTOR Body Mass Index 37.8 02/27/2024 12:24 PM PSYCHIATRIC AIDE INSTRUCTOR Plan of Treatment Not on file Medical Devices Implanted Type Area Asphalt Mixing Machine Operator Device Identifier Shelf Expiration Date Model / Serial / Lot [employer] [id number] System 6-12fr Mvp Venous Closure Vascade - [id number] - [id number] Implanted:Qty: 1 on 03/21/2019 by Vladimir Cantu MD at [facility] Collagen [employer] [id number] 01/30/2021 800-612C- 10U / 800-612C / [id number] 22C [employer] [id number] System 6-12fr Mvp Venous Closure Vascade - [id number] - [id number] Implanted:Qty: 1 on 03/21/2019 by Vladimir Cantu MD at [facility] [employer] [id number] 01/30/2021 800-612C- 10U / 800-612C / [id number] 22C [employer] [id number] System 6-12fr Mvp Venous Closure Vascade - [id number] - [id number] Implanted:Qty: 1 on 03/21/2019 by Vladimir Cantu MD at [facility] Collagen [employer] [id number] 01/30/2021 800-612C- 10U / 800-612C / [id number] 22C [employer] [id number] System 6-12fr Mvp Venous Closure Vascade - [id number] - [id number] Implanted:Qty: 1 on 03/21/2019 by Vladimir Cantu MD at [facility] [employer] [id number] 01/30/2021 800-612C- 10U / 800-612C / [id number] 22C [employer] [id number] System 6-12fr Mvp Venous Closure Vascade - [id number] - [id number] Implanted:Qty: 1 on 03/21/2019 by Vladimir Cantu MD at [facility] [employer] [id number] 01/30/2021 800-612C- 10U / 800-612C / [id number] 22C [employer] Jenni Contour 6fr 28cm Taper Tip Bladder Henry Low Profile Large Inner Latex Free 180-224 - [id number] Implanted:Qty: 1 on 12/16/2021 by Romy Quinn MD at [facility] Left: Ureter [employer] Jenni 08/19/2024 180-224 / / [id number] Procedures Procedure Name Priority Date/Time Associated Diagnosis Comments HEPATITIS C ANTIBODY Routine 06/05/2020 12:01 PM PSYCHIATRIC AIDE INSTRUCTOR Encounter for donation of kidney from Last 3 Months or Most Recently Relevant to Health Maintenance Results * Hepatitis C antibody (06/05/2020 12:01 PM PSYCHIATRIC AIDE INSTRUCTOR) Hep C Ab Nonreactive Nonreactive JANE MARX Comment:Antibodies to HCV no t detected. Does NOT exclude the possibility of recent exposure to HCV. Blood specimen (specimen) 06/05/2020 12:01 PM PSYCHIATRIC AIDE INSTRUCTOR 06/05/2020 12:22 PM PSYCHIATRIC AIDE INSTRUCTOR Justin Jimenez MD LAB MICROBIOLOGY - GENERAL [facility] LINARES Final Result JANE MARX [facility] [place] [address] from Last 3 Months or Most Recently Relevant to Health Maintenance Insurance ANTHEM ACCESS CHOICE [facility] [id number] [employer] ACCESS CHOICE ANTHEM ACCESS CHOICE Advance Directives For more information, please contact: [phone] * Full Code (Latest Code Status on File) Date Activated Date Inactivated Comments 12/16/2021 4:02 AM 12/17/2021 8:35 PM Care Teams Principal Software Architect Relationship Specialty [place] [address] [place] [address] PCP - General Physician Reo Asset Manager 04/17/23 [place] [address] [place] [address] Consulting Physician Urology 12/17/21 Bennie Sofia NP [address] [place] [address] [address] [place] [address] Nurse Practitioner Orthopedic Surgery 10/03/23
--- OUTSIDE RECORDS SUMMARY | 2024-07-05 00:56 | XMS_ITS | Encounter Summary ---
Author Organization [facility] Address [address] [place] [address] Care Team Providers Care Engineering Production Worker Name Role Phone Farshad Martinez MD Primary Care Provider [phone] Encounter Details Date Type Department Care Team (Late st Contact Info) Description 09/02/1998 Outpatient Historical HIS [facility] RIZO & Charles Alfred MD Social History Tobacco Use Types Packs/Day Years Used Date Smoking Tobacco: Never Assessed Sex and Gender Information Value Date Recorded Sex Assigned at Not on file Legal Sex Male 4:40 AM [employer]ER [employer] Gender Identity Not on file Sexual Orientation Not on file documented as of this encounter Plan of Treatment Not on file documented as of this encounter Visit Diagnoses Not on filedocumented in this encounter Care Teams Engineering Production Worker Relationship Specialty Start Date End Date Farshad Martinez MD [address] [facility] [address] [place] [address] PCP - General Internal Medicine 08/19/09 documented as of this encounter
--- OUTSIDE RECORDS SUMMARY | 2024-07-05 00:57 | XMS_ITS | Clinical Summary ---
Author Organization [facility] Address [address] [place] [id number] Care Team Providers Care Community Relations Director Name Role Phone Yuriy Valero MD Primary Care Provider [phone] Social History Tobacco Use Types Packs/Day Years Used Date Smoking Tobacco: Never Assessed Sex and Gender Information Value Date Recorded Sex Assigned at Not on file Legal Sex Male 3:31 PM CDT Gender Identity Not on file Sexual Orientation Not on file Plan of Treatment Health Maintenance Due Date Last Done Comments Colorectal Cancer Screening Colonoscopy (10 Years) 1978 Annual Physical 1981 Hepatitis C 1996 DTaP, Tdap and Td Vaccines ( 1 - Tdap) 1997 Hepatitis B Vaccines (1 of 3 - 19+ 3-dose series) 1997 COVID-19 Vaccine (2023-2 5 season) 2023 03/18/2021, 07/06/2020, 06/08/2020 Influenza Adult (#1) 2024 01/29/2021, 01/20/2016, 01/23/2014 HPV Vaccines Aged Out No longer eligi ble based on patient's age to complete this topic Meningococcal B Vaccine Aged Out No l onger eligible based on patient's age to complete this topic Meningococcal Vaccine Aged Out No rosangela dany eligible based on patient's age to complete this topic Pneumococcal Vaccine: Pediatrics (0 to 5 Years) and At-Risk Patients (6 to 64 Years) Aged Out No longer eligible b ased on patient's age to complete this topic RSV Immunizations Under 20 Months Aged Out No longer eligible b ased on patient's age to complete this topic Insurance [facility] [employer] [facility] Care Teams Community Relations Director Relationship Specialty Start Date End Date Yuriy Valero MD [address] [address] PCP - General FAMILY PRACTICE 01/19/22
--- OUTSIDE RECORDS SUMMARY | 2024-07-05 00:57 | XMS_ITS ---
Author Organization [facility] [employer] [facility] Address [facility] [facility] [address] [facility] [address] [place] [address] Care Team Providers Care Riveter Portable Machine Name Role Phone Zora Milian Primary Care Provider Ciara Ledesma Unavailable [phone] REASON FOR VISIT Reschedule appointment from 06/21 to 07/19 Social History Sex Assigned At : Social History Observation Description Sex Assigned At Male Encounters En[facility] [place] [id number] [facility] [address] [place] [address] 06/20/2024 Ciara Ambrose Plan Of Treatment Next Appt Details Provider Name:Ciara Ambrose, 07/19/2024 01:30:00 PM, [address], [facility] [address], [place], [address], Progress Notes * Elizabeth GASTELUMOB:[birth year] (43 yo M)Acc No.[id number]:06/20/2024 Patient: Shital Vito SMITH :1980 A ge:43 Y S ex:Male Phone: Address:[address] [place] [address], [place], [address] * true * Date: Generated for Printi ng/Faxing/eTransmitting on: 0 07/05/2024 12:57 AM CDT
--- OUTSIDE RECORDS SUMMARY | 2024-07-05 00:57 | XMS_ITS | Continuity of Care Document ---
Author Organization [facility] Address [address] [place] [address] Phone Care Team Providers Care Knuckle Bender Name Role Phone Nile Hayward MD Unavailable Unavailable Advance Directives Directive Yes / No Effective Date File Name No Information Encounters Encounter Description Practice Location Reason(s) For Visit Diagnoses Date Provider Providers Copied on Encounter [facility], [address] [place] [address], [address] [place] [address], tel:[phone] [facility] No Information [facility]. [address] [place] [address], [id number], . tel:[phone] [facility], [address] [place] [address], [id number], tel:[phone] [facility] FL[facility] Main[facility] Dowd. [address] [place] [address], [id number], . tel:[phone] Family History Family Member Type Diagnosis Age At Onset No Information Payers Payer name Insurance type Covered alliance party ID Authoriza tion(s) No Information Social History Type Description Quantity Date Captured Comments Sex Male Smoking Status No Information Chief Complaint And Reason For Visit No Information Reason For Referral Reason For Referral No Information History Of Present Illness Encounter Date Complaint History Of Prese nt Illness No Information Functional Status Date Functional Assessmen t No Information Instructions Date Instruction Additional Infor mation No Information Assessments Type Assessment Date No Information Patient Care Teams Name Effective Dates (start - stop) Status Members No Information
--- OUTSIDE RECORDS SUMMARY | 2024-07-05 00:57 | XMS_ITS | Data Portability ---
[facility] Address [address] [place] [address] Care Team Providers Care Supervisory It Specialist Name Role Phone FIORDALIZA SMITH Primary Care Provider Unavailab le Assessment No assessment recorded. Plan of Treatment Reminders Order Date Submit Date Provider Last Modified By Organization Details Last Modified Time Details Appointments None recorded. Lab PSA, total, serum or plasma 2023 024 [facility], [address], [place], [address], 4 12:20:20 TSH + free T4, serum 2023 024 [facility], [address], [address], [place], [address], 4 12:19:33 CBC w/ auto diff 2023 024 [facility], [address], [place], [address], 4 12:20:10 CMP, serum or plasma 2023 024 [facility], [address], [place], [address], 4 12:20:26 lipid panel, serum 2023 024 [facility], [address], [place], [address], 4 12:19:44 HbA1c (hemoglobi n A1c), blood 2023 024 [facility], [address], [place], [address], 4 12:20:00 Referral None recorded. Procedures colonoscop y screening (PROC) [email or web address] [facility], [address], [address], [place], [address], 5 11:55:06 treadmill nuclear stress test (PROC) [address] (Cardiology & Emg), [address], [place], [address], 4 01:33:41 Surgeries None recorded. Imaging None recorded. Medication Orders Medrol (Josiah) 4 mg tablets in a dose pack 2024 025 [id number], [address], [place], [address], 5 12:50:28 azithromyc in 250 mg tablet 2024 025 [facility], [address], [place], [address], 5 12:50:25 Patient TargetsNo targets recorded. Patient Instructions Encounter Date Encounter Id Patient Instructions Last Modified By Organization Details Last Modified Time 09/12/2023 [id number] A healthy lifestyle: care instructions [email or web address] Not available 10/08/2023 00:46:19 Reason for Referral None Reported. Results Created Date Observation Date Name Description Value Unit Range Abnormal Flag Note LastModifiedBy Organization Detail LastModifiedTime 01/29/20 24 01/26/2024 tread mill nucle ar stres s test (PROC ) No observ ation record ed. [facility] (Cardiology & Emg) [address] [facility] [address], [place], [address], 01/30/2024 12:26:24 02/02/2001/26/2024 tread mill nucle ar stres s test (PROC ) No observ ation record ed. [facility] [address], [place], [address], 02/02/2024 18:02:07 03/01/2002/21/2024 US, echoc ardio gram, trans thora cic, compl ete, w/ color flow No observ ation record ed. [facility] (Pulmonary) [address] [facility] [address], [place], [address], 03/05/2024 16:28:33 03/03/2003/03/2024 XR, chest , 2 view No observ ation record ed. [email or web address] [facility] [address] [facility], [place], [address], 03/03/2024 18:19:08 Result Notes None recorded. Problems Name Problem SNOMED Code Status Onset Date Resolution Date Notes Provider Name and Address Organization Details Recorded Time Obesity 059631168 Active 2023 MANUEL Liu Attn: Richard malik,[address] [place], [address], [facility] - [facility] 4 00:46:16 Body mass index 30+ - obesity 176563605 Active 2023 MANUEL Liu Attn: Richard malik,[address] [place], [address], [place] [facility] 4 00:46:17 Adult attention deficit hyperactivity disorder 244087279 Active 2023 MANUEL Liu Attn: Richard malik,[address] [facility], [place], [address], [facility] - [facility] 4 00:47:56 Family history of coronary arterioscleros is 874817762 Active 2023 MANUEL Liu Attn: Richard malik,[address] [facility], [place], [address], [place] [facility] 4 12:02:49 Chest pain 31886202 Active 2023 MANUEL Liu Attn: Richard malik,[address], [place], [address], [place] [facility] 4 12:02:49 Elevated blood-pressure reading without diagnosis of hypertension 345885649 Active 2023 MANUEL Liu Attn: Richard malik,[address], [place], [address], [place] [facility] 4 12:02:50 Problem Notes None recorded. Procedures Surgical History Date Name Laterality Status Provider Name and Address Organization Details Recorded Time Vasectomy completed Jennyfer Delgado [place] - [facility] 09/12/2023 16:09:00 Cholecystectomy completed Jennyfer Delgado [place] - [facility] 09/12/2023 16:09:09 Knee Surgery completed Jennyfer Delgado [place] - [facility] 01/17/2024 15:52:28 Imaging Results Imaging Date Name Status LastModified by Organiz ation Details LastModified Time 01/26/2024 treadmill nuclear stress test (PROC) completed [facility] (Cardiology & Emg) [address] [place], [place] [address] [address] [place] [address], [address], 01/30/2024 12:26:24 01/26/2024 treadmill nuclear stress test (PROC) completed [address] [place] [address], [address], 02/02/2024 18:02:07 02/21/2024 US, echocardiogram , transthoracic, complete, w/ color flow completed [facility] (Pulmonary) [address] [place], [place] [address] [address] [place] [address], [address], 03/05/2024 16:28:33 03/03/2024 XR, chest, 2 view completed [email or web address] [place] [id number] [facility] , [place], [address], 03/03/2024 18:19:08 Procedure Notes None recorded. Medical Equipment None Reported. Allergies No known drug allergies Medications Name Sig Start Date Stop Date Status Note LastModified by Organization Details LastModified Time nystatin 100,000 unit/mL oral suspension TAKE 5 MILLILITE RS BY MOUTH 4 TIMES A DAY DIRECTED. active Not Available Not Available No t Available azithromyci n 250 mg tablet TAKE 2 TABLETS BY MOUTH TODAY, THEN TAKE 1 TABLET DAILY FOR 4 DAYS DIRECTED active Not Available Not Available No t Available hydrocodone 5 mg-acetamin ophen 325 mg tablet 01/16 completed Not Available Not Available Not Available ondansetron HCl 4 mg tablet 01/16 completed Not Available Not Available Not Available prednisone 20 mg tablet 04/24 completed Not Available Not Available Not Available meloxicam 7.5 mg tablet 01/16 completed Not Available Not Available Not Available benzonatate 100 mg capsule TAKE 1 CAPSULE BY MOUTH THREE TIMES A DAY NEEDED FOR COUGH 04/24 completed Not Available Not Available Not Available dextroamphe tamine-amph etamine 20 mg tablet TAKE 1 TABLET BY MOUTH ONCE DAILY NEEDED IN THE AFTERNOON S FOR 30 DAYS 03/01 completed Not Available Not Available Not Available diltiazem CD 120 mg capsule,ext ended release 24 hr Take 1 capsule every day by oral route. active Not Available Not Available No t Available dextroamphe tamine-amph etamine ER 10 mg 24hr capsule,ext end release TAKE 1 CAPSULE BY MOUTH EVERY DAY 01/16 completed Not Available Not Available Not Available codeine 10 mg-guaifene sin 100 mg/5 mL oral liquid TAKE 10 ML BY MOUTH DAILY AT BEDTIME NEEDED 09/11 completed Not Available Not Available Not Available methylpredn isolone 4 mg tablets in a dose pack PLEASE SEE ATTACHED FOR DETAILED DIRECTION S active Not Available Not Available No t Available albuterol sulfate HFA 90 mcg/actuati on aerosol inhaler Inhale 2 puffs every 4-6 hours by inhalatio n route as needed. active Not Available Not Available No t Available dextroamphe tamine-amph etamine ER 30 mg 24hr capsule,ext end release TAKE 1 CAPSULE BY MOUTH ONCE A DAY IN THE MORNING 30 DAYS 03/01 completed Not Available Not Available Not Available ondansetron 4 mg disintegrat ing tablet Place 1 tablet every 6 hours by transling ual route as needed, for nausea. active Not Available Not Available No t Available amoxicillin 875 mg-willianu rusty clavulanate 125 mg tablet TAKE 1 TABLET BY MOUTH TWICE A DAY FOR 10 DAYS 04/24 completed Not Available Not Available Not Available atomoxetine 18 mg capsule Take by oral route for 30 days. 03/01 completed Not Available Not Available Not Available atomoxetine 40 mg capsule TAKE 1 CAPSULE BY MOUTH EVERY DAY IN THE MORNING FOR 90 DAYS active Not Available Not Available No t Available Paxlovid 300 mg (150 mg x 2)-100 mg tablets in a dose pack TAKE 2 TABLETS OF NIRMATREL VIR WITH 1 TABLET OF RITONAVIR TWICE DAILY FOR 5 DAYS 09/11 completed Not Available Not Available Not Available Vitals Date Recorded Body height Body mass index (BMI) Body weight Respiratory rate Oxygen saturation Oxygen saturation in Arterial blood by Pulse oximetry Heart rate Provider Name and Address Organization Details Last Updated DateTime 4 178.44 cm 38.4 kg/m2 357197. 78 g 20 /min 98 % 98 % 89 /min Jennyfer Delgado MA [facility] 15:21:39 Date Recorded Systolic blood pressure Diastolic blood pressure Provider Name and Address Organization Details Last Updated DateTime 09/12/2023 140 mm[Hg] 90 mm[Hg] MANUEL Liu Attn: Accounting,[address] [place], [address], [facility] 09/12/2023 15:52:42 Date Recorded Body height Body mass index (BMI) Body weight Respiratory rate Oxygen saturation Oxygen saturation in Arterial blood by Pulse oximetry Heart rate Systolic blood pressure Diastolic blood pressure Provider Name and Address Organization Details Last Updated DateTime 4 178.44 cm 38.6 kg/m2 468496. 53 g 20 /min 99 % 99 % 76 /min 140 mm[Hg] 90 mm[Hg] Jennyfer Delgado MA [facility] 15:55:23 Date Recorded Systolic blood pressure Diastolic blood pressure Systolic blood pressure Diastolic blood pressure Provider Name and Address Organization Details Last Updated DateTime 01/17/2024 130 mm[Hg] 80 mm[Hg] 124 mm[Hg] 82 mm[Hg] MANUEL Liu Attn: Accounting ,[address] [place], [address] , [facility] 4 16:32:59 Date Recorded Body height Body mass index (BMI) Body weight Heart rate Oxygen saturation Oxygen saturation in Arterial blood by Pulse oximetry Systolic blood pressure Diastolic blood pressure Provider Name and Address Organization Details Last Updated DateTime 4 178.44 cm 38.8 kg/m2 078496. 2 g 80 /min 100 % 100 % 140 mm[Hg] 89 mm[Hg] Carmen Jones MA [facility] 4 14:41:57 Date Recorded Respiratory rate Systolic blood pressure Diastolic blood pressure Systolic blood pressure Diastolic blood pressure Provider Name and Address Organization Details Last Updated DateTime 18 /min 138 mm[Hg] 90 mm[Hg] 138 mm[Hg] 90 mm[Hg] MANUEL Liu Attn: Accountin g,[address] [place], [address], [facility] 4 15:11:21 Date Recorded Body height Body mass index (BMI) Body weight Oxygen saturation Oxygen saturation in Arterial blood by Pulse oximetry Heart rate Systolic blood pressure Diastolic blood pressure Provider Name and Address Organization Details Last Updated DateTime 5 178.44 cm 39.3 kg/m2 817451. 49 g 99 % 99 % 66 /min 142 mm[Hg] 82 mm[Hg] Jennyfer Delgado MA [facility] 5 12:20:25 Date Recorded Respiratory rate Systolic blood pressure Diastolic blood pressure Provider Name and Address Organization Details Last Updated DateTime 04/24/2024 18 /min 148 mm[Hg] 88 mm[Hg] MANUEL Liu Attn: Accounting, [address] [place], [address], [facility] 04/24/2024 12:47:47 Social History Question Answer Notes LastModified by Organizat ion Details LastModified Time Tobacco Smoking Status Never Smoker Jennyfer Delgado MA null, [facility] 09/12/2023 15:20:43 What Is Your Level Of Alcohol Consumption? None Information not available 09/12/2023 Are You Blind Or Do You Have Difficulty Seeing? No Glasses Information not available 09/12/2023 What Is Your Level Of Caffeine Consumption? Occasional Coffee, Cut Down On Soda 1-2 A Cups A Day Information not available 09/12/2023 In The 14 Days Before Symptom Onset, Have You Had Close Contact With A Laboratory-confir med COVID-19 While That Case Was Ill? No Information not available 09/12/2023 In The 14 Days Before Symptom Onset, Have You Had Close Contact With A Person Who Is Under Investigation For COVID-19 While That Person Was Ill? No Information not available 09/12/2023 Have You Been To An Area Known To Be High Risk For COVID-19? No Information not available 09/12/2023 Are You Deaf Or Do You Have Serious Difficulty Hearing? No Information not available 09/12/2023 What Type Of Diet Are You Following? REGULAR Information not available 09/12/2023 Are There Any Guns Present In Your Home? No Information not available 09/12/2023 What Was The Date Of Your Most Recent Tobacco Screening? 04/24/2024 Information not available 04/24/2024 Do You Use Your Seat Belt Or Car Seat Routinely? Yes Information not available 09/12/2023 Do You Have Smoke And Carbon Monoxide Detectors In Your Home? Yes Information not available 09/12/2023 Do You Use Any Illicit Or Recreational Drugs? No Information not available 09/12/2023 Do You Use Sunscreen Routinely? No Information not available 01/17/2024 Has Tobacco Cessation Counseling Been Provided? Yes Information not available 09/12/2023 On What Date Was Tobacco Cessation Counseling Provided? 04/24/2024 Information not available 04/24/2024 Do You Or Have You Ever Used Any Other Forms Of Tobacco Or Nicotine? No Information not available 09/12/2023 Sex: Male Functional Status Question Answer Note LastModified by Organizat ion Details LastModified Time Are you able to care for yourself? Yes Information not available 09/12/2023 What is your exercise level? Occasional walking Information not available 09/12/2023 Mental Status None recorded. Family History Relationship Description Onset Age of this Age Resolved Age Notes LastModified by Organization Details LastModified Time Father Heart disease [email or web address] Not available 2023 16:09:45 Father Myocardial infarction [email or web address] Not available 01/16 15:52:02 Mother Hypertensive disorder [email or web address] Not available 2023 16:09:50 Medical History Condition Response Coronary Artery Disease N Other N Atrial Fibrillation N High Blood Pressure N Thyroid Problems N Kidney or Bladder Problems N Depression N COPD N Blood Clots N GI Problems N Skin Problems N Anemia N Heart Attack (MN) N Diabetes N Anxiety Disorder N Muscle, Joint, or Bone Problems N Seizures/Epilepsy N Acid Reflux (GERD) N Cancer N Stroke N Allergies N Asthma N High Cholesterol N Hepatitis N Liver Disease N Headaches N Osteoporosis N Heart Failure N Immunizations Vaccine Type Date Status Note Provider Nam e and Address Organization Details Recorded Time Influenza, MDCK, quadrivalent, PF 02/13/2022 completed Jennyfre Delgado [place], [place] [facility] 02/06/2024 11:05:28 Influenza, MDCK, quadrivalent, PF 02/16/2023 completed Jennyfer Del[place] [facility] 02/06/2024 11:05:28 COVID-19, mRNA, LNP-S, PF, 30 mcg/0.3 mL dose 06/08/2020 completed Jennyfer Del[place] [facility] 02/06/2024 11:05:28 COVID-19, mRNA, LNP-S, PF, 30 mcg/0.3 mL dose 07/06/2020 completed Jennyfer Del[place] [facility] 02/06/2024 11:05:28 COVID-19, mRNA, LNP-S, PF, 30 mcg/0.3 mL dose 03/18/2021 completed Jennyfer Del[place] [facility] 02/06/2024 11:05:28 COVID-19, mRNA, LNP-S, bivalent, PF, 30 mcg/0.3 mL dose 02/14/2022 completed Jennyfer Del[place] [facility] 02/06/2024 11:05:28 COVID-19, mRNA, LNP-S, PF, master-sucrose, 30 mcg/0.3 mL 04/10/2023 completed JANUSZ Berry, [place] [facility] 02/06/2024 11:05:28 Influenza, split virus, quadrivalent, PF 01/29/2021 [place] JANUSZ Berry[place] [facility] 02/06/2024 11:05:28 Past Encounters Encounter ID Performer Location Encounter Start Date Encounter Closed Date Diagnosis/Indication Diagnosis SNOMED-CT Code Diagnosis ICD10 Code Diagnosis Note [id number] MANUEL Liu [facility] [address] [place] [address] 09/12/2023 15:10:26 10/09/2023 15:11:50 Adult health examination 897091333 Z00.00 annual wellness/p reop exam completed Cholesterol screening 27 0324707 Z13.220 fasting lipids are due Diabetes m ellitus screening 066270431 Z13.1 a1c annual screening due. Thyroid di sorder screening 824531008 Z13.29 thyroid panel ordered for baseline evaluation . Long-term drug therapy 907357092 Z79.899 CBC and CMP due Screening for malignant neoplasm of prostate 532176126 Z12.5 annual psa due Tear of me dial meniscus of knee 612153120 S83.241A acute injury. ortho suspects meniscal injury. MRI to be completed soon. Elevated blood-pressure reading without diagnosis of hypertension 113368316 R03.0 BP elevation is likely secondary to acute pain in the knee. Body mass index 30+ - obesity 244723885 Z68.38 discussed healthy diet, exercise, controllin g carbohydra hermila and added sugars in the diet Obesity 234981340 E66.8 Adult atte ntion deficit hyperactivity disorder 770519031 F90.9 pt is managed by specialist and on adderall ER therapy. [id number] MANUEL Liu [facility] [address] [place] [address] 01/17/2024 15:36:26 01/17/2024 16:36:47 Elevated blood-pressure reading without diagnosis of hypertension 193396597 R03.0 improved on repeat checks today. continue to monitor blood pressure at home we will hold off on starting any medication at this time. Chest pain 16686114 R07. 9 High levels of stress along with hypertensi on notations and episode of left-sided chest pain. We will refer for treadmill nuclear stress testing Family his tory of coronary arteriosclerosis 973969719 Z82.49 Underlying family history of coronary artery disease in his father who did pass away. [id number] MANUEL Liu [facility] [address] [facility] [address] [place] [address] 03/01/2024 14:38:31 03/01/2024 15:42:15 Elevated blood-pressure reading without diagnosis of hypertension 107410790 R03.0 Blood pressure is consistent ly 138 to 140/90. We are awaiting the echo results which we have called for and are not back because they have not been read yet by the cardiologi . Discussed with the patient that depending on what the echocardio gram shows we may institute a low-dose calcium channel aide which would help with his blood pressure and any presence of diastolic dysfunctio n that is not uncommon to see with patients who have mild hypertensi on. We will contact the patient with results of the echo as soon as they are back. Also the patient is now off of stimulant therapy for his ADHD and only on Strattera and we are hopeful that this will also help with his blood pressure management . Adult atte ntion deficit hyperactivity disorder 838142792 F90.9 pt is managed by specialist and now on strattera 40mg daily. Patient is off of the stimulant which will hopefully help his blood pressure Family his tory of coronary arteriosclerosis 840603625 Z82.49 Underlying family history of coronary artery disease in his father who did pass away. Screening for malignant neoplasm of colon 614112769 Z12.11 Patient is 43 and due for his baseline screening colonoscop y referral [id number] MANUEL Liu [facility] [address] [place] [address] 04/24/2024 12:12:18 04/24/2024 13:05:19 Dysfunction of left eustachian tube 3774310044 269413 H69.92 Start Medrol Dosepak and Z-Josiah therapy as directed. There is some kendal coloring to the fluid behind the TM. Postviral cough 75205165 4 R05.3 Post infection cough that is lingering. Patient can take over-the-c ounter Delsym cough syrup Health Concerns Section Related Observation LastModified by Organization Detai ls LastModified Time None Recorded Concern Status LastModified by Organization Details LastModified Time None Recorded Advance Directives Directive None Recorded Payers Encounter Date Sequence Insurance Name Policy Number Policy Hines Covered Member ID Hines Member ID Guarantor Name 09/12/2023 1 [place] [id number] 2 Vito Gastelum [id number] Vito Gastelum 09/12/2023 2 [facility] Vito Gastelum [id number] OI Vito Gastelum 01/17/2024 1 [place] [id number] 2 Vito Gastelum [id number] Vito Gastelum 01/17/2024 2 [facility] Vito Gastelum [id number] OI Vito Gastelum 03/01/2024 1 [place] [id number] 2 Vito Gastelum [id number] Vito Gastelum 03/01/2024 2 [facility] Vito Gastelum [id number] OI Vito Gastelum 04/24/2024 1 [place] [id number] 2 Vito Gastelum [id number] Vito Gastelum 04/24/2024 2 [facility] Vito Gastelum [id number] OI Vito Gastelum Notes Date Note Type Note Provider Name and Address Organization Details Recorded Time 4 text/html KneeReported bypatient.Location:right; 09/08/23 date of injury: right medial knee. acute injury Quality:aching; burning; dull; deep Severity:severe Timing:acuteNotes:plans for surgery after MRI evaluation is completed. pt here for annual exam and preop exam combination. MANUEL Liu Attn: Accounting,[address], [place], [address], [facility] 10/08/2023 00:49:19 4 text/html bp issues, states that his bp has been very high, states that today it was 141/106 states that this is the first time he has noticed it being this high. States that more recently states that if he inhales he does feel some pain in his upper abdomen. Patient has had an episode of left-sided chest pain that lasted a few minutes. He does have a significant amount of stress going on right now with also the recent passing of his father in law. Patient has several home readings recorded including blood pressures of 159/92, 147/94, 141/99, 136/102, and 141/106 this morning. Patient also has had some adjustments with his ADHD medication as he is now on generic Strattera but also maintains Adderall dosing.states that he has noticed some painful spasms/pressure in his chest also MANUEL Liu Attn: Accounting,[address] , [place], [address], [facility] 01/19/2024 12:03:04 4 text/html HypertensionReported bypatient.Notes:Pressure is slightly elevated today. He is not feeling very well overall today last few days. He has been a bit under the weather. He has tested negative for COVID and has been doing supportive care at home. He had quite a bit of nausea and Zofran was sent out for that. He was seen in the urgent care and tested negative for COVID flu and strep. He also had a negative chest x-ray. Was diagnosed for a viral infection and given Tessalon Perles for cough. There is not a true ferrous assessment for his blood pressure today but overall numbers have improved compared to previous visit. patient has ADHD and is managed by the psychiatry specialist MANUEL Liu Attn: Accounting,[address], [place], [address], [facility] 03/10/2024 21:30:53 5 text/html Pt states that he has had the cough off and on since Nov/ States that occasionally he coughs up phlegmStates that with the ears their isn't any pain more so like drainage/ fluid, Pt. did get to [facility] states they didnt see any swelling, Did give him prednisone states that he hasn't seen much change since and is on last dose today MANUEL Liu Attn: Accounting,[address] [facility], [place], [address], [facility] 05/11/2024 19:24:49
--- OUTSIDE RECORDS SUMMARY | 2024-07-05 00:58 | XMS_ITS ---
Author Organization [facility] As [facility] Address [facility] [facility] [address] [facility] [address] [place] [address] Care Team Providers Care Administrative Program Specialist Name Role Phone Zora Milian Primary Care Provider Ciara Ledesma Unavailable [phone] REASON FOR VISIT RE:Reschedule appointment from 06/21 to 07/19 Social History Sex Assigned At : Social History Observation Description Sex Assigned At Male Encounters Encounter Location Date Provider Diagnosis [place] [id number] [facility] [address] [place] [address] 06/20/2024 Ciara Ambrose Plan Of Treatment Next Appt Details Provider Name:Ciara Ambrose, 07/19/2024 01:30:00 PM, [address], [facility] [address], [place], [address], Progress Notes * Elizabeth GASTELUMOB:[birth year] (43 yo M)Acc No.[id number]:06/20/2024 Patient: Shital Vito SMITH :1980 A ge:43 Y S ex:Male Phone: Address:[address] [place] [address], [place], [address] * true * Date: Generated for Printi ng/Faxing/eTransmitting on: 0 07/05/2024 12:57 AM CDT
[2024-07-05 09:37] VITALS: BP 137/80; PULSE 62; RESP 20; TEMP 36.4; O2SAT 99
[2024-07-05] MEDS: LACTATED RINGERS 1,000 ML 150 ML IV CONT (09:53)
--- NOTE | 2024-07-05 10:17 | P.PNAN_ITS ---
Anes - Initial Pre Proc Eval Procedure: Operation Date: 07/05/24 10:30 Proposed Procedures p Screening Colonoscopy - Smooth Gaines MD Date/Time: 07/05/24 10:17 Surgeon: Smooth Gaines MD Pre Op Diagnosis: Screening colon Patient Data Age: 43 Gender: M Height: 1.78 m Weight: 123.2 kg Last Vital Signs Temp 36.4 C 07/05/24 09:37 Pulse 62 07/05/24 09:37 Resp 20 07/05/24 09:37 BP 137/80 07/05/24 09:37 Pulse Ox 99 07/05/24 09:37 O2 Del Method Room Air 07/05/24 09:37 Allergies Allergy/AdvReac Type Severity Reaction Status Date / Time No Known Allergies Allergy Verified 07/05/24 09:35 Home Medications ?Medication ?Instructions ?Recorded ?Confirmed ?Type atomoxetine 40 mg capsule 40 mg PO DAILY 03/03/24 07/05/24 History ondansetron 4 mg disintegrating 4 mg PO DIRECTED 03/03/24 07/05/24 History tablet diltiazem HCl 120 mg 120 mg PO DAILY 06/25/24 07/05/24 History capsule,extended release 24 hr Patient hx anesthesia problems: none Family hx anesthesia problems: none Results Review: All pre-operative results and documents have been reviewed as part of the pre- operative evaluation. [facility] Past Medical History Medical History (Updated 07/05/24 @ 10:17 by Farshad Joel MD) BMI 39.0-39.9,adult Obstructive sleep apnea Kidney stones Surgical History Surgical History History of cholecystectomy Family History Family History Father Heart disease CHF (congestive heart failure) Acute myocardial infarction Large fiber neuropathy A-fib Mother Hypertension Sibling No problems noted. 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 Informed Consent: The patient's anesthetic plan and its attendant risks and benefits were discussed with the patient/family/POA. Questions were solicited and answers provided to the satisfaction of the patient/family/POA.
--- NOTE | 2024-07-05 10:36 | PM.IMHP ---
H&P: HPI History of Present Illness Date/Time: 07/05/24 10:36 Chief Complaint: Screening colonoscopy Narrative: This is the patient's first colonoscopy. There are no GI symptoms and there is no family history of colorectal cancer. Review of Systems Review of Systems: All systems reviewed & are unremarkable except as noted in HPI and below [facility] Past Medical History Medical History (Updated 07/05/24 @ 10:37 by Smooth Gaines MD) BMI 39.0-39.9,adult Obstructive sleep apnea Kidney stones Surgical History Surgical History History of cholecystectomy Family History Family History Father Heart disease CHF (congestive heart failure) Acute myocardial infarction Large fiber neuropathy A-fib Mother Hypertension Sibling No problems noted. 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 Gender identity (if verbalized by the patient): Male Spiritual care concerns: No Meds Home Medications and Allergies Home Medications ?Medication ?Instructions ?Recorded ?Confirmed ?Type atomoxetine 40 mg capsule 40 mg PO DAILY 03/03/24 07/05/24 History ondansetron 4 mg disintegrating 4 mg PO DIRECTED 03/03/24 07/05/24 History tablet diltiazem HCl 120 mg 120 mg PO DAILY 06/25/24 07/05/24 History capsule,extended release 24 hr Allergies Allergy/AdvReac Type Severity Reaction Status Date / Time No Known Allergies Allergy Verified 07/05/24 09:35 Vital Signs Vital Signs - 24 hr 07/05/24 09:37 Temperature 97.6 F Pulse Rate 62 Respiratory Rate 20 Blood Pressure 137/80 Pulse Oximetry 99 Oxygen Delivery Room Air Exam Const: General: cooperative and healthy appearing Resp: Effort & Inspection: normal respiratory effort and able to speak in complete sentences Auscultation: clear to auscultation bilaterally Cardio: Rate: regular rate Rhythm: regular rhythm GI: Inspection: normal to inspection GI Palp: No No hepatosplenomegaly present Auscultation: normal bowel sounds Rectal Exam: deferred Skin: General skin exam: normal color Psych: Appearance: grossly normal Mental Status: mental status grossly normal Assessment and Plan Assessment and plan (1) Encounter for screening colonoscopy: Code(s): Z12.11 - Encounter for screening for malignant neoplasm of colon Status: Acute Assessment and Plan: The patient is deemed a good candidate for the procedure. Consent signed. Will proceed.
[2024-07-05 11:06] VITALS: BP 120/81; PULSE 78; RESP 19; O2SAT 99
[2024-07-05 11:16] VITALS: BP 126/81; PULSE 68; RESP 21; O2SAT 99
[2024-07-05 11:26] VITALS: BP 126/80; PULSE 68; RESP 20; O2SAT 100
== END 2024-07-05 11:39 | disposition home or self-care (01) ==
PROVIDERS: PCP Physician Assistant; Referring Provider Physician Assistant; Visit Provider Internal Medicine Gastroenterology
PROC: 0DJD8ZZ Inspection of Lower Intestinal Tract, Via Natural or Artificial Opening Endoscopic (ICD-10-PCS; CPT 45378; principal; 2024-07-05 10:30)
DX: Z12.11 Encounter for screening for malignant neoplasm of colon (principal); K64.8 Other hemorrhoids; G47.33 Obstructive sleep apnea (adult) (pediatric); E66.9 Obesity, unspecified; Z68.39 Body mass index [BMI] 39.0-39.9, adult; Z98.890 Other specified postprocedural states; Z90.49 Acquired absence of other specified parts of digestive tract; Z87.442 Personal history of urinary calculi; Z82.49 Family history of ischemic heart disease and other diseases of the circulatory system
CPT/HCPCS: 45378; J2003; J2704; J7120

== ENCOUNTER 2025-01-31 14:12 | Outpatient (CLI) | payer OTHER, SELFPAY ==
--- NOTE | ~2025-01-31 | XR_ITS ---
EXAMINATION: XR shoulder RT min 2V, 01/31/2025 14:19 CDT HISTORY: PAIN x 2 weeks, no inj, no surg COMPARISON: No comparisons available. Findings: No acute fracture or malalignment. No significant degenerative changes. Soft tissues unremarkable. Impression: No acute fracture or malalignment. Reviewed, dictated and finalized at location P. Impression: No acute fracture or malalignment.
--- NOTE | ~2025-01-31 | XR_ITS ---
[id number] Indication: PAIN x 2 weeks, no inj, no surg Comparison: None Findings: The vertebral heights are intact. No fracture or subluxation. The disc heights are intact. Soft tissues unremarkable Impression: No acute abnormality. Reviewed, dictated and finalized at location P. Impression: No acute abnormality.
== END 2025-01-31 14:13 | disposition home or self-care (01) ==
LOC: GOSHIMG 14:13
PROVIDERS: PCP Physician Assistant; Visit Provider Physician Assistant
DX: M54.12 Radiculopathy, cervical region (principal); M25.511 Pain in right shoulder
CPT/HCPCS: 72040; 73030

== ENCOUNTER 2025-04-08 16:16 | Outpatient (CLI) | payer OTHER, BC, SELFPAY ==
--- NOTE | ~2025-04-08 | XR_ITS ---
EXAMINATION: XR chest 2V DATE: 04/08/2025 16:36 INDICATION: Influenza TECHNIQUE: PA and lateral views of the chest were obtained. COMPARISON: Chest radiograph dated 03/03/2024 FINDINGS: The lungs remain clear with no focal airspace opacities, pulmonary edema, pleural effusion or pneumothorax. The cardiomediastinal silhouette is normal. Mild thoracic spondylosis. IMPRESSION: 1. No acute cardiopulmonary disease. Reviewed, dictated and finalized at location A. 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
== END 2025-04-08 16:17 | disposition home or self-care (01) ==
PROVIDERS: PCP Physician Assistant; Visit Provider Physician Assistant
DX: J11.1 Influenza due to unidentified influenza virus with other respiratory manifestations (principal)
CPT/HCPCS: 71046